=== PATIENT | female | born 1995 | race American Indian/Alaskan Native ===

== ENCOUNTER 2017-05-06 23:01 | Emergency (ER) | payer OTHER, MEDICAID ==
[2017-05-06 23:48] VITALS: BP 143/91
--- NOTE | 2017-05-07 00:35 | XRay Report ---
FINAL REPORT PROCEDURE: XR ANKLE 2V LT TECHNIQUE: LEFT ankle radiographs, AP and lateral views. HISTORY: injury, LT ANKLE PAIN COMPARISON: No prior studies are available for comparison. FINDINGS: Fracture (s) and/or Dislocation(s): None. Alignment: Normal. Joint space(s): Normal. Soft tissues: Normal. Bone mineralization: Normal. Foreign bodies: Normal. Calcaneal spurring: Normal. IMPRESSION: Normal Examination .
--- NOTE | 2017-05-07 00:37 | XRay Report ---
FINAL REPORT PROCEDURE: XR KNEE 3V RT TECHNIQUE: RIGHT knee radiographs, AP, lateral and oblique views. CPT 25041 HISTORY: injury, RT KNEE PAIN COMPARISON: No prior studies are available for comparison. FINDINGS: Fracture (s) and/or Dislocation(s): None . Alignment: Normal . Joint space(s): Normal . Soft tissues: Normal . Bone mineralization: Normal . Foreign bodies: None . IMPRESSION: Normal Examination.
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
[2017-05-07] MEDS ORDERED: NORCO 5/325 PO ONE (02:57)
[2017-05-07] MEDS ORDERED: VALIUM PO ONE (02:57)
[2017-05-07] MEDS ORDERED: TRIPLE ANTIBIOTIC TP ONE (02:58)
[2017-05-07] MEDS ORDERED: BOOSTRIX IM ONE (02:58)
[2017-05-07] MEDS ORDERED: NACL 0.9% IR ONE (03:04)
== END 2017-05-07 05:44 | disposition home or self-care (01) ==
LOC: ED 23:01
DX: S90.02XA Contusion of left ankle, initial encounter (principal); M25.50 Pain in unspecified joint; F41.9 Anxiety disorder, unspecified; S80.212A Abrasion, left knee, initial encounter; S80.211A Abrasion, right knee, initial encounter; V49.59XA Passenger injured in collision with other motor vehicles in traffic accident, initial encounter; Y93.9 Activity, unspecified; Y92.9 Unspecified place or not applicable; Y99.9 Unspecified external cause status
CPT/HCPCS: 90471; 90715; A6250

== ENCOUNTER 2018-05-04 09:20 | Emergency (ER) | payer MEDICAID ==
[2018-05-04 12:08] LABS: Bacteria,Urine 1+ /HPF (Negative); Bilirubin,Urine NEG (Negative); Blood,Urine SM (Negative); Color,Urine Yellow (Yellow); HCG Qualitative,Urine Negative (Negative); Mucus,Urine 2+ /HPF; Protein,Urine <15 mg/dL mg/dL (Negative)
--- NOTE | 2018-05-04 12:40 | Emergency Department Report ---
ED N/V/D HPI - General Chief complaint: Abdominal Pain Stated complaint: STOMACH PAIN Time Seen by Provider: 05/04/18 10:25 Source: patient Mode of arrival: Ambulatory Limitations: No Limitations - History of Present Illness MD complaint: nausea, diarrhea -: Gradual, days(s) (3) Description of Diarrhea: water Associated Abdominal Pain: Yes Location: diffuse Radiation: none Severity: mild Pain Scale: 3 Quality: cramping Consistency: intermittent Improves with: eating Worsens with: none Associated Symptoms: denies: myalgias, chest pain, cough, headaches, loss of appetite, malaise, nausea/vomiting, rash, dysuria, shortness of breath, syncope - Related Data Previous Rx's Medication Instructions Recorded Last Taken Type Ferrous Sulfate [Feosol 325 MG tab] 325 mg PO TID #90 tablet 09/09/14 10/09/14 16:00 Rx 1 tablet Butalb/Acetaminophen/Caffeine 1 each PO Q6HR PRN #20 capsule 01/16/15 Unknown Rx [Fioricet 50-300-40 mg Capsule] Ibuprofen [Motrin 800 MG tab] 800 mg PO Q8H PRN #30 tablet 01/16/15 Unknown Rx Ibuprofen [Motrin 800 MG tab] 800 mg PO Q8HR PRN #30 tablet 07/25/16 Unknown Rx Cyclobenzaprine [Flexeril] 10 mg PO TID PRN #15 tablet 05/07/17 Unknown Rx Ibuprofen [Motrin] 600 mg PO Q8H PRN #15 tablet 05/07/17 Unknown Rx Dicyclomine [Bentyl] 10 mg PO QID 3 Days capsule 05/04/18 Unknown Rx Diphenoxylate HCl/Atropine 1 each PO BID PRN #10 tablet 05/04/18 Unknown Rx [Lomotil 2.5-0.025 mg Tablet] Nitrofurantoin Monohyd/M-Cryst 100 mg PO BID #14 capsule 05/04/18 Unknown Rx [Macrobid 100 mg Capsule] Allergies Allergy/AdvReac Type Severity Reaction Status Date / Time No Known Allergies Allergy Verified 05/06/17 23:40 ED Review of Systems ROS: Stated complaint: STOMACH PAIN Other details as noted in HPI Comment: All other systems reviewed and negative ED Past Medical Hx - Past Medical History Previous Medical History?: Yes Hx Hypertension: No Hx Congestive Heart Failure: No Hx Diabetes: No Hx Deep Vein Thrombosis: No Hx Renal Disease: No Hx Sickle Cell Disease: No Hx Headaches / Migraines: Yes Hx Seizures: No Hx Psychiatric Treatment: Yes (anxiety) Hx Asthma: No Hx COPD: No Hx HIV: No - Surgical History Past Surgical History?: No Additional Surgical History: csection - Social History Smoking Status: Current Every Day Smoker Substance Use Type: None - Medications Home Medications: Home Medications Medication Instructions Recorded Confirmed Last Taken Type Ferrous Sulfate [Feosol 325 MG tab] 325 mg PO TID #90 tablet 09/09/14 11/22/14 10/09/14 16:00 Rx 1 tablet Butalb/Acetaminophen/Caffeine 1 each PO Q6HR PRN #20 capsule 01/16/15 Unknown Rx [Fioricet 50-300-40 mg Capsule] Ibuprofen [Motrin 800 MG tab] 800 mg PO Q8H PRN #30 tablet 01/16/15 Unknown Rx Ibuprofen [Motrin 800 MG tab] 800 mg PO Q8HR PRN #30 tablet 07/25/16 Unknown Rx Cyclobenzaprine [Flexeril] 10 mg PO TID PRN #15 tablet 05/07/17 Unknown Rx Ibuprofen [Motrin] 600 mg PO Q8H PRN #15 tablet 05/07/17 Unknown Rx Dicyclomine [Bentyl] 10 mg PO QID 3 Days capsule 05/04/18 Unknown Rx Diphenoxylate HCl/Atropine 1 each PO BID PRN #10 tablet 05/04/18 Unknown Rx [Lomotil 2.5-0.025 mg Tablet] Nitrofurantoin Monohyd/M-Cryst 100 mg PO BID #14 capsule 05/04/18 Unknown Rx [Macrobid 100 mg Capsule] ED Physical Exam - General Limitations: No Limitations General appearance: alert, in no apparent distress - Head Head exam: Present: atraumatic, normocephalic - Eye Eye exam: Present: normal appearance - ENT ENT exam: Present: mucous membranes moist - Neck Neck exam: Present: normal inspection - Respiratory Respiratory exam: Present: normal lung sounds bilaterally. Absent: respiratory distress, wheezes, rales, rhonchi - Cardiovascular Cardiovascular Exam: Present: regular rate, normal rhythm. Absent: systolic murmur, diastolic murmur, rubs, gallop - GI/Abdominal GI/Abdominal exam: Present: soft, normal bowel sounds. Absent: distended, tenderness, guarding, rebound - Extremities Exam Extremities exam: Present: normal inspection - Back Exam Back exam: Present: normal inspection - Neurological Exam Neurological exam: Present: alert, oriented X3 - Psychiatric Psychiatric exam: Present: normal affect, normal mood - Skin Skin exam: Present: warm, dry, intact, normal color. Absent: rash ED Course Vital Signs 05/04/18 09:36 Temperature 98.5 F Pulse Rate 78 Respiratory 16 Rate Blood Pressure 125/76 O2 Sat by Pulse 100 Oximetry ED Medical Decision Making - Lab Data Lab Results 05/04/18 Range/Units 11:20 Urine Color Yellow (Yellow) Urine Turbidity Clear (Clear) Urine pH 5.0 (5.0-7.0) Ur Specific [place] 1.027 (1.003-1.030) Urine Protein <15 mg/dl (Negative) mg/dL Urine Glucose (UA) Neg (Negative) mg/dL Urine Ketones Neg (Negative) mg/dL Urine Blood Sm (Negative) Urine Nitrite Neg (Negative) Urine Bilirubin Neg (Negative) Urine Urobilinogen 2.0 (<2.0) mg/dL Ur Leukocyte Esterase Mod (Negative) Urine WBC (Auto) 9.0 H (0.0-6.0) /HPF Urine RBC (Auto) 6.0 (0.0-6.0) /HPF U Epithel Cells (Auto) 22.0 H (0-13.0) /HPF Urine Bacteria (Auto) 1+ (Negative) /HPF Urine Mucus 2+ /HPF Urine HCG, Qual Negative (Negative) - Radiology Data interpreted by me: X-ray of the abdomen shows no acute process - Medical Decision Making Patient's diarrhea most likely is secondary to a viral source. Patient has a mild urinary tract infection started secondary to the diarrhea patient be started on antibiotics and medicines for symptomatic relief Critical care attestation.: If time is entered above; I have spent that time in minutes in the direct care of this critically ill patient, excluding procedure time. ED Disposition Clinical Impression: Viral enteritis Acute cystitis Qualifiers: Hematuria presence: without hematuria Qualified Code(s): N30.00 - Acute cystitis without hematuria Disposition: TO HOME OR SELFCARE Is pt being admited?: No Does the pt Need Aspirin: No Condition: Stable Instructions: Urinary Tract Infection in Women (ED), Acute Diarrhea (ED) Referrals: PRIMARY CARE, [Primary Care Provider] - 3-5 Days Time of Disposition: 12:40
--- NOTE | 2018-05-04 12:42 | XRay Report ---
ABDOMINAL SERIES: History: Diarrhea. Erect chest film shows no acute or significant changes involving the heart or lung niño. There is no evidence of free air beneath the diaphragms. The gas pattern within the abdomen is unremarkable. There is no evidence of bowel dilatation, significant air-fluid levels, or masses. Organ shadows are unremarkable. IMPRESSION: Abdominal series within normal limits.
[2018-05-04 12:59] VITALS: BP 121/71
== END 2018-05-04 12:56 | disposition home or self-care (01) ==
LOC: ED 09:20
DX: A08.4 Viral intestinal infection, unspecified (principal); N30.00 Acute cystitis without hematuria; F17.200 Nicotine dependence, unspecified, uncomplicated; F41.9 Anxiety disorder, unspecified; G43.909 Migraine, unspecified, not intractable, without status migrainosus
CPT/HCPCS: 74022; 81001; 81025; 99283

== ENCOUNTER 2019-05-01 15:12 | Emergency (ER) | payer MEDICAID ==
[2019-05-01 15:45] VITALS: BP 138/79
--- NOTE | 2019-05-01 15:45 | Event Note ---
ED Screening Note Date of service: 05/01/19 Time: 15:42 ED Screening Note: This is a 23 y.o. F. with left ankle pain for 4 days. PMH of anxiety LMP 04/13/2019 This initial assessment/diagnostic orders/clinical plan/treatment(s) is/are subject to change based on patients health status, clinical progression and re- assessment by fellow clinical providers in the ED. Further treatment and workup at subsequent clinical providers discretion. Patient/guardian urged not to elope from the ED as their condition may be serious if not clinically assessed and managed. Initial orders include: XR left ankle
--- NOTE | 2019-05-01 17:45 | XRay Report ---
LEFT ANKLE 3 VIEWS INDICATION / CLINICAL INFORMATION: pain, lateral. COMPARISON: None available. FINDINGS: No fracture, dislocation or soft tissue swelling is seen within the left ankle. The ankle [place] ears intact. Signer Name: Vega Sharpe MD Signed: 05/01/2019 5:41 PM Workstation Name: [id number]
[2019-05-01] MEDS ORDERED: IBUPROFEN PO ONE (17:57)
--- NOTE | 2019-05-01 17:59 | Emergency Department Report ---
ED Lower Extremity HPI - General Chief Complaint: Extremity Injury, Lower Stated Complaint: LT ANKLE INJURY Time Seen by Provider: 05/01/19 15:41 Source: patient Mode of arrival: Ambulatory Limitations: No Limitations - History of Present Illness Initial Comments: This is a 23-year-old female nontoxic, well nourished in appearance, no acute signs of distress presents to the ED with c/o of left ankle pain 1 week. Patient denies any trauma. Patient denies any numbness, tingling, fever, chills, nausea, vomiting, chest pain, shortness of breath, headache, stiff neck. Patient denies any joint swelling or joint redness. Patient denies decreased range of motion. Patient stated has decreased gait due to pain. Patient denies any allergies or significant past medical history. MD Complaint: ankle injury -: week(s) (1) Injury: Ankle: Left Severity: mild Severity scale (0 -10): 8 Improves With: immobilization Worsens With: movement, palpation Associated Symptoms: able to partially bear weight, ambulatory. denies: snap/pop sensation, swelling, numbness, tingling, unable to bear weight - Related Data Previous Rx's Medication Instructions Recorded Last Taken Type Ferrous Sulfate [Feosol 325 MG tab] 325 mg PO TID #90 tablet 09/09/14 10/09/14 16:00 Rx 1 tablet Butalb/Acetaminophen/Caffeine 1 each PO Q6HR PRN #20 capsule 01/16/15 Unknown Rx [Fioricet 50-300-40 mg Capsule] Ibuprofen [Motrin 800 MG tab] 800 mg PO Q8H PRN #30 tablet 01/16/15 Unknown Rx Ibuprofen [Motrin 800 MG tab] 800 mg PO Q8HR PRN #30 tablet 07/25/16 Unknown Rx Cyclobenzaprine [Flexeril] 10 mg PO TID PRN #15 tablet 05/07/17 Unknown Rx Ibuprofen [Motrin] 600 mg PO Q8H PRN #15 tablet 05/07/17 Unknown Rx Dicyclomine [Bentyl] 10 mg PO QID 3 Days capsule 05/04/18 Unknown Rx Diphenoxylate HCl/Atropine 1 each PO BID PRN #10 tablet 05/04/18 Unknown Rx [Lomotil 2.5-0.025 mg Tablet] Nitrofurantoin Monohyd/M-Cryst 100 mg PO BID #14 capsule 05/04/18 Unknown Rx [Macrobid 100 mg Capsule] Benzonatate [Tessalon Perle] 100 mg PO TID PRN #30 capsule 09/27/18 Unknown Rx Cetirizine HCl [Zyrtec 10mg tab] 10 mg PO DAILY #30 tablet 09/27/18 Unknown Rx Fluticasone [Flonase] 1 spray NS QDAY #1 bottle 09/27/18 Unknown Rx Oseltamivir Phosphate [Tamiflu] 75 mg PO BID 5 Days #10 capsule 09/27/18 Unknown Rx Ibuprofen [Motrin] 600 mg PO Q8H PRN #20 tablet 05/01/19 Unknown Rx Allergies Allergy/AdvReac Type Severity Reaction Status Date / Time No Known Allergies Allergy Verified 05/06/17 23:40 ED Review of Systems ROS: Stated complaint: LT ANKLE INJURY Other details as noted in HPI Constitutional: denies: chills, fever Eyes: denies: eye pain, eye discharge, vision change ENT: denies: ear pain, throat pain Respiratory: denies: cough, shortness of breath, wheezing Cardiovascular: denies: chest pain, palpitations Endocrine: no symptoms reported Gastrointestinal: denies: abdominal pain, nausea, diarrhea Genitourinary: denies: urgency, dysuria, discharge Musculoskeletal: arthralgia. denies: back pain, joint swelling Skin: denies: rash, lesions Neurological: denies: headache, weakness, paresthesias Psychiatric: denies: anxiety, depression Hematological/Lymphatic: denies: easy bleeding, easy bruising ED Past Medical Hx - Past Medical History Previous Medical History?: Yes Hx Hypertension: No Hx Congestive Heart Failure: No Hx Diabetes: No Hx Deep Vein Thrombosis: No Hx Renal Disease: No Hx Sickle Cell Disease: No Hx Headaches / Migraines: Yes Hx Seizures: No Hx Psychiatric Treatment: Yes (anxiety) Hx Asthma: No Hx COPD: No Hx HIV: No - Surgical History Hx Appendectomy: Yes Additional Surgical History: csection - Social History Smoking Status: Never Smoker Substance Use Type: None - Medications Home Medications: Home Medications Medication Instructions Recorded Confirmed Last Taken Type Ferrous Sulfate [Feosol 325 MG tab] 325 mg PO TID #90 tablet 09/09/14 11/22/14 10/09/14 16:00 Rx 1 tablet Butalb/Acetaminophen/Caffeine 1 each PO Q6HR PRN #20 capsule 04/17/15 Unknown Rx [Fioricet 50-300-40 mg Capsule] Ibuprofen [Motrin 800 MG tab] 800 mg PO Q8H PRN #30 tablet 01/16/15 Unknown Rx Ibuprofen [Motrin 800 MG tab] 800 mg PO Q8HR PRN #30 tablet 07/25/16 Unknown Rx Cyclobenzaprine [Flexeril] 10 mg PO TID PRN #15 tablet 05/07/17 Unknown Rx Ibuprofen [Motrin] 600 mg PO Q8H PRN #15 tablet 05/07/17 Unknown Rx Dicyclomine [Bentyl] 10 mg PO QID 3 Days capsule 05/04/18 Unknown Rx Diphenoxylate HCl/Atropine 1 each PO BID PRN #10 tablet 05/04/18 Unknown Rx [Lomotil 2.5-0.025 mg Tablet] Nitrofurantoin Monohyd/M-Cryst 100 mg PO BID #14 capsule 05/04/18 Unknown Rx [Macrobid 100 mg Capsule] Benzonatate [Tessalon Perle] 100 mg PO TID PRN #30 capsule 09/27/18 Unknown Rx Cetirizine HCl [Zyrtec 10mg tab] 10 mg PO DAILY #30 tablet 09/27/18 Unknown Rx Fluticasone [Flonase] 1 spray NS QDAY #1 bottle 09/27/18 Unknown Rx Oseltamivir Phosphate [Tamiflu] 75 mg PO BID 5 Days #10 capsule 09/27/18 Unknown Rx Ibuprofen [Motrin] 600 mg PO Q8H PRN #20 tablet 05/01/19 Unknown Rx ED Physical Exam - General Limitations: No Limitations General appearance: alert, in no apparent distress - Head Head exam: Present: atraumatic, normocephalic - Extremities Exam Extremities exam: Present: normal inspection, full ROM, tenderness, normal capillary refill. Absent: joint swelling, calf tenderness - Expanded Lower Extremity Exam Left Hip exam: Present: normal inspection, full ROM. Absent: tenderness, swelling Upper Leg exam: Present: normal inspection, full ROM. Absent: tenderness, swelling Knee exam: Present: normal inspection, full ROM. Absent: tenderness, swelling Lower Leg exam: Present: normal inspection, full ROM. Absent: tenderness, swelling Ankle exam: Present: normal inspection, full ROM, tenderness. Absent: swelling, abrasion, laceration, ecchymosis, deformity, crepidus, dislocation, erythema, anterior draw sign Foot/Toe exam: Present: normal inspection, full ROM. Absent: tenderness, swelling Neuro vascular tendon exam: Present: no vascular compromise Gait: Positive: observed and limited by pain - Back Exam Back exam: Present: normal inspection, full ROM - Neurological Exam Neurological exam: Present: alert, oriented X3, normal gait - Psychiatric Psychiatric exam: Present: normal affect, normal mood - Skin Skin exam: Present: warm, dry, intact, normal color. Absent: rash ED Course Vital Signs 05/01/19 15:43 Temperature 98.9 F Pulse Rate 72 Respiratory 18 Rate Blood Pressure 138/79 O2 Sat by Pulse 99 Oximetry - Reevaluation(s) Reevaluation #1: 05/01/19 17:56 Patient is speaking in full sentences with no signs of distress noted. ED Lower Extremity MDM - Medical Decision Making This is a 23-year-old female that presents with left ankle sprain. Patient is stable and was examined by me. I referred patient to an orthopedic doctor for further evaluation for possible MRI. X-ray has been obtained and dictated by the radiologist. Patient is notified of the x-ray report with noted by the patient. Patient does have normal gait with no tenderness and no joint swelling. No ecchymosis. no joint redness or swelling. Not warm to touch. No signs of cellulites present. Patient received juhi wrap. Patient was instructed to RICE therapy. Patient received Motrin for pain. Patient is discharged with Motrin. At time of discharge, the patient does not seem toxic or ill in appearance. No acute signs of distress noted. Patient agrees to discharge treatment plan of care. No further questions noted by the patient. Critical care attestation.: If time is entered above; I have spent that time in minutes in the direct care of this critically ill patient, excluding procedure time. ED Disposition Clinical Impression: Left ankle sprain Disposition: DC-01 TO HOME OR SELFCARE Is pt being admited?: No Does the pt Need Aspirin: No Condition: Stable Instructions: Ankle Sprain (ED), RICE Therapy (ED) Additional Instructions: Follow-up with a orthopedic doctor in 3-5 days or if symptoms worsen and continue return to emergency room as soon as possible. Prescriptions: Ibuprofen [Motrin] 600 mg PO Q8H PRN #20 tablet PRN Reason: Pain Referrals: IMTIAZ YEH MD [Primary Care Provider] - 3-5 Days TRACEY HONG MD [Staff Physician] - 3-5 Days [facility]IMARY CAR[facility] [Referring] - 3-5 Days [facility] [Outside] - 3-5 Days [facility] [Outside] - 3-5 Days Forms: Work/School Release Form(ED)
== END 2019-05-01 19:31 | disposition home or self-care (01) ==
LOC: ED 15:12
DX: S93.402A Sprain of unspecified ligament of left ankle, initial encounter (principal); G43.909 Migraine, unspecified, not intractable, without status migrainosus; F41.9 Anxiety disorder, unspecified; Z90.49 Acquired absence of other specified parts of digestive tract; Z79.899 Other long term (current) drug therapy; X58.XXXA Exposure to other specified factors, initial encounter; Y93.89 Activity, other specified; Y92.89 Other specified places as the place of occurrence of the external cause; Y99.8 Other external cause status
CPT/HCPCS: 99283

== ENCOUNTER 2020-10-25 13:58 | Emergency (ER) | payer MEDICAID ==
[2020-10-25] MEDS ORDERED: METOCLOPRAMIDE 10 MG/2 ML INJ IV ONE (15:10)
[2020-10-25] MEDS ORDERED: SODIUM CHLORIDE 0.9% 1000 ML 1,000 ML IV ONE (15:10)
--- NOTE | 2020-10-25 15:21 | Emergency Department Report ---
ED N/V/D HPI - General Chief complaint: Nausea/Vomiting/Diarrhea Stated complaint: 7 WKS VOMITTING Source: patient Mode of arrival: Ambulatory Limitations: No Limitations - History of Present Illness Initial comments: 25-year-old -[place] female presents to the emergency room complaining of nausea and vomiting and some suprapubic pain. Patient states that she has been vomiting for approximately 2 weeks. She reports she is 7 weeks has not followed up by [facility] yet. Patient states that she was seen at [facility] on 10/20/2020 was given a liter of fluids and Zofran and discharged. Patient reports she is 2 para 1 with a last menstrual period of 12-20. She denies any vaginal bleeding no vaginal discharge no past medical history and currently is taking Zofran that was given to her by [facility]. Patient denies any dysuria no urinary frequency or urgency. MD complaint: nausea, vomiting, abdominal pain Onset/Timin -: week(s) Description of Vomiting: food contents Associated Abdominal Pain: Yes (Suprapubic) Severity: moderate Quality: aching Improves with: none Worsens with: none Associated Symptoms: nausea/vomiting, weakness. denies: chest pain, cough, diaphoresis, fever/chills - Related Data Previous Rx's Medication Instructions Recorded Last Taken Type Ferrous Sulfate [Feosol 325 MG tab] 325 mg PO TID #90 tablet 09/09/14 10/09/14 16:00 Rx 1 tablet Butalb/Acetaminophen/Caffeine 1 each PO Q6HR PRN #20 capsule 01/16/15 Unknown Rx [Fioricet 50-300-40 mg Capsule] Ibuprofen [Motrin 800 MG tab] 800 mg PO Q8H PRN #30 tablet 01/16/15 Unknown Rx Ibuprofen [Motrin 800 MG tab] 800 mg PO Q8HR PRN #30 tablet 07/25/16 Unknown Rx Cyclobenzaprine [Flexeril] 10 mg PO TID PRN #15 tablet 05/07/17 Unknown Rx Ibuprofen [Motrin] 600 mg PO Q8H PRN #15 tablet 05/07/17 Unknown Rx Dicyclomine [Bentyl] 10 mg PO QID 3 Days capsule 05/04/18 Unknown Rx Diphenoxylate HCl/Atropine 1 each PO BID PRN #10 tablet 05/04/18 Unknown Rx [Lomotil 2.5-0.025 mg Tablet] Nitrofurantoin Monohyd/M-Cryst 100 mg PO BID #14 capsule 05/04/18 Unknown Rx [Macrobid 100 mg Capsule] Benzonatate [Tessalon Perle] 100 mg PO TID PRN #30 capsule 09/27/18 Unknown Rx Cetirizine HCl [Zyrtec 10mg tab] 10 mg PO DAILY #30 tablet 09/27/18 Unknown Rx Fluticasone [Flonase] 1 spray NS QDAY #1 bottle 09/27/18 Unknown Rx Oseltamivir Phosphate [Tamiflu] 75 mg PO BID 5 Days #10 capsule 09/27/18 Unknown Rx Ibuprofen [Motrin] 600 mg PO Q8H PRN #20 tablet 05/01/19 Unknown Rx Helena Root [Helena] 250 mg PO QID PRN #40 capsule 10/25/20 Unknown Rx Metoclopramide [Reglan] 10 mg PO TID PRN #30 tab 10/25/20 Unknown Rx Nitrofurantoin Rhea/M-Cryst 100 mg PO Q12HR 10 Days #20 capsule 10/25/20 Unknown Rx [Macrobid CAP] Allergies Allergy/AdvReac Type Severity Reaction Status Date / Time No Known Allergies Allergy Verified 05/06/17 23:40 ED Review of Systems ROS: Stated complaint: 7 WKS VOMITTING Other details as noted in HPI ED Past Medical Hx - Past Medical History Hx Hypertension: No Hx Congestive Heart Failure: No Hx Diabetes: No Hx Deep Vein Thrombosis: No Hx Renal Disease: No Hx Sickle Cell Disease: No Hx Headaches / Migraines: No Hx Seizures: No Hx Psychiatric Treatment: Yes (anxiety) Hx Asthma: No Hx COPD: No Hx HIV: No - Surgical History Hx Appendectomy: No Additional Surgical History: csection - Social History Smoking Status: Never Smoker Substance Use Type: None - Medications Home Medications: Home Medications Medication Instructions Recorded Confirmed Last Taken Type Ferrous Sulfate [Feosol 325 MG tab] 325 mg PO TID #90 tablet 09/09/14 11/22/14 10/09/14 16:00 Rx 1 tablet Butalb/Acetaminophen/Caffeine 1 each PO Q6HR PRN #20 capsule 01/16/15 Unknown Rx [Fioricet 50-300-40 mg Capsule] Ibuprofen [Motrin 800 MG tab] 800 mg PO Q8H PRN #30 tablet 01/16/15 Unknown Rx Ibuprofen [Motrin 800 MG tab] 800 mg PO Q8HR PRN #30 tablet 07/25/16 Unknown Rx Cyclobenzaprine [Flexeril] 10 mg PO TID PRN #15 tablet 05/07/17 Unknown Rx Ibuprofen [Motrin] 600 mg PO Q8H PRN #15 tablet 05/07/17 Unknown Rx Dicyclomine [Bentyl] 10 mg PO QID 3 Days capsule 05/04/18 Unknown Rx Diphenoxylate HCl/Atropine 1 each PO BID PRN #10 tablet 05/04/18 Unknown Rx [Lomotil 2.5-0.025 mg Tablet] Nitrofurantoin Monohyd/M-Cryst 100 mg PO BID #14 capsule 05/04/18 Unknown Rx [Macrobid 100 mg Capsule] Benzonatate [Tessalon Perle] 100 mg PO TID PRN #30 capsule 09/27/18 Unknown Rx Cetirizine HCl [Zyrtec 10mg tab] 10 mg PO DAILY #30 tablet 09/27/18 Unknown Rx Fluticasone [Flonase] 1 spray NS QDAY #1 bottle 09/27/18 Unknown Rx Oseltamivir Phosphate [Tamiflu] 75 mg PO BID 5 Days #10 capsule 09/27/18 Unknown Rx Ibuprofen [Motrin] 600 mg PO Q8H PRN #20 tablet 05/01/19 Unknown Rx Helena Root [Helena] 250 mg PO QID PRN #40 capsule 10/25/20 Unknown Rx Metoclopramide [Reglan] 10 mg PO TID PRN #30 tab 10/25/20 Unknown Rx Nitrofurantoin Rhea/M-Cryst 100 mg PO Q12HR 10 Days #20 capsule 10/25/20 Unknown Rx [Macrobid CAP] ED Physical Exam - General Limitations: No Limitations General appearance: alert, in no apparent distress - Head Head exam: Present: atraumatic, normocephalic - Eye Eye exam: Present: normal appearance - ENT ENT exam: Present: mucous membranes moist - Neck Neck exam: Present: normal inspection - Respiratory Respiratory exam: Present: normal lung sounds bilaterally. Absent: respiratory distress - Cardiovascular Cardiovascular Exam: Present: regular rate, normal rhythm. Absent: systolic murmur, diastolic murmur, rubs, gallop - GI/Abdominal GI/Abdominal exam: Present: soft, tenderness (Suprapubic), normal bowel sounds - Extremities Exam Extremities exam: Present: normal inspection - Back Exam Back exam: Present: normal inspection - Neurological Exam Neurological exam: Present: alert, oriented X3 - Psychiatric Psychiatric exam: Present: normal affect, normal mood - Skin Skin exam: Present: warm, dry, intact, normal color. Absent: rash ED Course Vital Signs 10/25/20 10/25/20 14:02 20:14 Temperature 98.1 F 97.9 F Pulse Rate 88 78 Respiratory 20 18 Rate Blood Pressure 136/78 Blood Pressure 128/80 [Right] O2 Sat by Pulse 100 100 Oximetry ED Medical Decision Making - Lab Data Result diagrams: 10/25/20 15:13 10/25/20 15:13 Laboratory Tests 10/25/20 10/25/20 10/25/20 15:13 15:13 15:13 WBC 6.2 RBC 4.64 Hgb 14.4 H Hct 41.8 MCV 90 MCH 31 MCHC 35 H RDW 13.2 Plt Count 409 Lymph % (Auto) 17.9 Rhea % (Auto) 7.3 Eos % (Auto) 1.0 Baso % (Auto) 1.6 Lymph # (Auto) 1.1 L Rhea # (Auto) 0.4 Eos # (Auto) 0.1 Baso # (Auto) 0.1 Seg Neutrophils % 72.2 H Seg Neutrophils # 4.5 Sodium 138 Potassium 3.4 L Chloride 99.5 Carbon Dioxide 27 Anion Gap 15 BUN 9 Creatinine 0.6 Estimated GFR > 60 BUN/Creatinine Ratio 15 Glucose 92 Calcium 9.3 Total Bilirubin 1.20 AST 9 ALT < 5 L Alkaline Phosphatase 64 Total Protein 7.7 Albumin 4.3 Albumin/Globulin Ratio 1.3 HCG, Quant 29253 H Urine Color Urine Turbidity Urine pH Ur Specific [place] Urine Protein Urine Glucose (UA) Urine Ketones Urine Blood Urine Nitrite Urine Bilirubin Urine Urobilinogen Ur Leukocyte Esterase Urine WBC (Auto) Urine RBC (Auto) U Epithel Cells (Auto) Urine Bacteria (Auto) Urine Mucus 10/25/20 15:59 WBC RBC Hgb Hct MCV MCH MCHC RDW Plt Count Lymph % (Auto) Rhea % (Auto) Eos % (Auto) Baso % (Auto) Lymph # (Auto) Rhea # (Auto) Eos # (Auto) Baso # (Auto) Seg Neutrophils % Seg Neutrophils # Sodium Potassium Chloride Carbon Dioxide Anion Gap BUN Creatinine Estimated GFR BUN/Creatinine Ratio Glucose Calcium Total Bilirubin AST ALT Alkaline Phosphatase Total Protein Albumin Albumin/Globulin Ratio HCG, Quant Urine Color Mary Urine Turbidity Cloudy Urine pH 5.0 Ur Specific [place] 1.027 Urine Protein 100 mg/dl Urine Glucose (UA) Neg Urine Ketones 80 Urine Blood Mod Urine Nitrite Neg Urine Bilirubin Neg Urine Urobilinogen 4.0 Ur Leukocyte Esterase Mod Urine WBC (Auto) 47.0 H Urine RBC (Auto) 47.0 U Epithel Cells (Auto) 26.0 H Urine Bacteria (Auto) 1+ Urine Mucus 3+ - Medical Decision Making 25-year-old -[place] female presents to the emergency room complaining of nausea and vomiting and some suprapubic pain. Patient states that she has been vomiting for approximately 2 weeks. She reports she is 7 weeks has not followed up by [facility] yet. Patient states that she was seen at [facility] on 10/20/2020 was given a liter of fluids and Zofran and discharged. Patient reports she is 2 para 1 with a last menstrual period of 12-20. She denies any vaginal bleeding no vaginal discharge no past medical history and currently is taking Zofran that was given to her by [facility]. Patient denies any dysuria no urinary frequency or urgency. Critical care attestation.: If time is entered above; I have spent that time in minutes in the direct care of this critically ill patient, excluding procedure time. ED Disposition Clinical Impression: Nausea and vomiting in prior to 22 weeks gestation, Hyperemesis arising during , Dehydration, Hypokalemia UTI (urinary tract infection) Qualifiers: Urinary tract infection type: site unspecified Hematuria presence: without hematuria Qualified Code(s): N39.0 - Urinary tract infection, site not specified Disposition: DC-01 TO HOME OR SELFCARE Is pt being admited?: No Does the pt Need Aspirin: No Condition: Stable Instructions: Hyperemesis Gravidarum, Hypokalemia, Dehydration, Adult, [id number], and Urinary Tract Infection Additional Instructions: Complete antibiotics as prescribed. Take antinausea medication as prescribed. Is very important for you to follow-up with a [facility]. Prescriptions: Helena Root [Helena] 250 mg PO QID PRN #40 capsule PRN Reason: Nausea And Vomiting Nitrofurantoin Rhea/M-Cryst [Macrobid CAP] 100 mg PO Q12HR 10 Days #20 capsule Metoclopramide [Reglan] 10 mg PO TID PRN #30 tab PRN Reason: Nausea And Vomiting Referrals: PRIMARY CARE, [Primary Care Provider] - 3-5 Days [facility] [Provider Group] - 3-5 Days [facility] [Provider Group] - 3-5 Days [facility] [Provider Group] - 3-5 Days Forms: Work/School Release Form(ED)
[2020-10-25 15:42] LABS: Basophils # (Auto) 0.1 K/mm3 (0.0-0.1); Basophils % (Auto) 1.6 % (0.0-1.8); Eosinophils # (Auto) 0.1 K/mm3 (0.0-0.4); Hematocrit 41.8 % (30.3-42.9); Hemoglobin 14.4 gm/dl (10.1-14.3); Lymphocytes # (Auto) 1.1 K/mm3 (1.2-5.4); Lymphocytes % (Auto) 17.9 % (13.4-35.0); Mean Corpuscular HGB Conc 35 % (30-34); Mean Corpuscular Volume 90 fl (79-97); Monocytes # (Auto) 0.4 K/mm3 (0.0-0.8); Monocytes % (Auto) 7.3 % (0.0-7.3); Platelet Count 409 K/mm3 (140-440); Red Blood Count 4.64 M/mm3 (3.65-5.03); Red Cell Distribution Width 13.2 % (13.2-15.2)
[2020-10-25 15:53] LABS: Alanine Aminotransferase < 5 units/L (7-56); Albumin 4.3 g/dL (3.9-5); BUN/Creatinine Ratio 15; Blood Urea Nitrogen 9 mg/dL (7-17); Calcium 9.3 mg/dL (8.4-10.2); Hemolysis Index 1
[2020-10-25 16:28] LABS: Bacteria,Urine 1+ /HPF (Negative); Bilirubin,Urine NEG (Negative); Blood,Urine MOD (Negative); Color,Urine Amber (Yellow); Mucus,Urine 3+ /HPF
[2020-10-25] MEDS ORDERED: ONDANSETRON 4 MG/2 ML INJ IV ONE (19:38)
[2020-10-25 20:15] VITALS: BP 128/80
== END 2020-10-25 20:16 | disposition home or self-care (01) ==
LOC: ED 13:58
DX: O23.41 Unspecified infection of urinary tract in pregnancy, first trimester (principal); O21.8 Other vomiting complicating pregnancy; O26.891 Other specified pregnancy related conditions, first trimester; E86.0 Dehydration; E87.6 Hypokalemia; F41.9 Anxiety disorder, unspecified; Z3A.01 Less than 8 weeks gestation of pregnancy; Z98.890 Other specified postprocedural states; Z79.1 Long term (current) use of non-steroidal anti-inflammatories (NSAID); Z79.899 Other long term (current) drug therapy
CPT/HCPCS: 36415; 80053; 81001; 84702; 85025; 87086; 96361; 96374; 96375; 99283; J2405; J7030

== ENCOUNTER 2020-11-01 21:01 | Emergency (ER) | payer MEDICAID ==
[2020-11-01] MEDS ORDERED: METOCLOPRAMIDE 10 MG/2 ML INJ IV ONE (21:15)
[2020-11-01] MEDS ORDERED: PYRIDOXINE 50 MG TAB PO STA (21:15)
[2020-11-01] MEDS ORDERED: FAMOTIDINE 20 MG/2 ML INJ IV ONE (21:35)
[2020-11-01 21:37] LABS: Hematocrit 41.6 % (30.3-42.9); Hemoglobin 14.6 gm/dl (10.1-14.3); Mean Corpuscular HGB Conc 35 % (30-34); Mean Corpuscular Volume 90 fl (79-97); Platelet Count 404 K/mm3 (140-440); Red Blood Count 4.65 M/mm3 (3.65-5.03); Red Cell Distribution Width 13.1 % (13.2-15.2)
[2020-11-01 21:51] LABS: INR 1.06 (0.87-1.13)
--- NOTE | 2020-11-01 21:51 | Emergency Department Report ---
ED N/V/D HPI - General Stated complaint: 8WEEKS PREG,VOMITING BLOOD/EXTREMLY WEAK PUI?: No Source: patient Mode of arrival: Ambulatory Limitations: No Limitations - History of Present Illness Initial comments: Patient is a A0 25-year-old -[place] female with no past medical history and who is approximately 8 weeks gestation presents to the ED with complaint of acute onset persistent intractable nausea and vomiting for the last 5 days. Patient states that she was initially evaluated in this ED about 3 days ago for the same, and was diagnosed with hyperemesis gravidarum and given a prescription of antiemetics. Patient states that she has not been able to keep anything down including the medications for nausea and vomiting that was prescribed for her. Patient states that she is unable to eat or drink anything because of intractable nausea and vomiting. Patient states that prior to arrival in the ED she retched heavily and visualize some traces of blood with emesis. Patient denies abdominal pain, chest pain, shortness of breath, abdominal pain, fever, chills, dizziness, syncope, vaginal bleeding, dysuria, urinary frequency and urgency, vaginal discharge, cough, headache, dyspareunia or low back pain. MD complaint: nausea, vomiting -: Sudden, days(s) (5) Description of Vomiting: food contents, watery Associated Abdominal Pain: No Location: diffuse Radiation: none Severity: severe Pain Scale: 7 Quality: aching, dull Consistency: intermittent Improves with: none Worsens with: eating, vomiting Context: other (8 weeks gestation) - Related Data Previous Rx's Medication Instructions Recorded Last Taken Type Ferrous Sulfate [Feosol 325 MG tab] 325 mg PO TID #90 tablet 09/09/14 10/09/14 16:00 Rx 1 tablet Butalb/Acetaminophen/Caffeine 1 each PO Q6HR PRN #20 capsule 01/16/15 Unknown Rx [Fioricet 50-300-40 mg Capsule] Ibuprofen [Motrin 800 MG tab] 800 mg PO Q8H PRN #30 tablet 01/16/15 Unknown Rx Ibuprofen [Motrin 800 MG tab] 800 mg PO Q8HR PRN #30 tablet 07/25/16 Unknown Rx Cyclobenzaprine [Flexeril] 10 mg PO TID PRN #15 tablet 05/07/17 Unknown Rx Ibuprofen [Motrin] 600 mg PO Q8H PRN #15 tablet 05/07/17 Unknown Rx Dicyclomine [Bentyl] 10 mg PO QID 3 Days capsule 05/04/18 Unknown Rx Diphenoxylate HCl/Atropine 1 each PO BID PRN #10 tablet 05/04/18 Unknown Rx [Lomotil 2.5-0.025 mg Tablet] Nitrofurantoin Monohyd/M-Cryst 100 mg PO BID #14 capsule 05/04/18 Unknown Rx [Macrobid 100 mg Capsule] Benzonatate [Tessalon Perle] 100 mg PO TID PRN #30 capsule 09/27/18 Unknown Rx Cetirizine HCl [Zyrtec 10mg tab] 10 mg PO DAILY #30 tablet 09/27/18 Unknown Rx Fluticasone [Flonase] 1 spray NS QDAY #1 bottle 09/27/18 Unknown Rx Oseltamivir Phosphate [Tamiflu] 75 mg PO BID 5 Days #10 capsule 09/27/18 Unknown Rx Ibuprofen [Motrin] 600 mg PO Q8H PRN #20 tablet 05/01/19 Unknown Rx Helena Root [Helena] 250 mg PO QID PRN #40 capsule 10/25/20 Unknown Rx Metoclopramide [Reglan] 10 mg PO TID PRN #30 tab 10/25/20 Unknown Rx Nitrofurantoin [place]/M-Cryst 100 mg PO Q12HR 10 Days #20 capsule 10/25/20 Unknown Rx [Macrobid CAP] Famotidine [Pepcid] 20 mg PO Q12H #60 tablet 11/02/20 Unknown Rx Promethazine [Phenergan SUPPOS] 25 mg AL Q6HR PRN #20 supp.rect 11/02/20 Unknown Rx Promethazine [Phenergan] 25 mg PO Q6HR PRN #3 tab 11/02/20 Unknown Rx cephALEXin [Keflex] 500 mg PO Q8HR #30 cap 11/02/20 Unknown Rx Allergies Allergy/AdvReac Type Severity Reaction Status Date / Time No Known Allergies Allergy Verified 11/01/20 21:18 ED Review of Systems ROS: Stated complaint: 8WEEKS PREG,VOMITING BLOOD/EXTREMLY WEAK Other details as noted in HPI Constitutional: denies: chills, fever Eyes: denies: eye pain, eye discharge, vision change ENT: denies: ear pain, throat pain Respiratory: denies: cough, shortness of breath, wheezing Cardiovascular: denies: chest pain, palpitations Endocrine: no symptoms reported Gastrointestinal: nausea, vomiting. denies: abdominal pain, diarrhea Genitourinary: denies: urgency, dysuria, discharge Musculoskeletal: denies: back pain, joint swelling, arthralgia Skin: denies: rash, lesions Neurological: denies: headache, weakness, paresthesias Psychiatric: denies: anxiety, depression Hematological/Lymphatic: denies: easy bleeding, easy bruising ED Past Medical Hx - Past Medical History Hx Hypertension: No Hx Congestive Heart Failure: No Hx Diabetes: No Hx Deep Vein Thrombosis: No Hx Renal Disease: No Hx Sickle Cell Disease: No Hx Headaches / Migraines: No Hx Seizures: No Hx Psychiatric Treatment: Yes (anxiety) Hx Asthma: No Hx COPD: No Hx HIV: No - Surgical History Hx Appendectomy: No Additional Surgical History: csection - Social History Smoking Status: Never Smoker Substance Use Type: None - Medications Home Medications: Home Medications Medication Instructions Recorded Confirmed Last Taken Type Ferrous Sulfate [Feosol 325 MG tab] 325 mg PO TID #90 tablet 09/09/14 11/22/14 10/09/14 16:00 Rx 1 tablet Butalb/Acetaminophen/Caffeine 1 each PO Q6HR PRN #20 capsule 01/16/15 Unknown Rx [Fioricet 50-300-40 mg Capsule] Ibuprofen [Motrin 800 MG tab] 800 mg PO Q8H PRN #30 tablet 01/16/15 Unknown Rx Ibuprofen [Motrin 800 MG tab] 800 mg PO Q8HR PRN #30 tablet 07/25/16 Unknown Rx Cyclobenzaprine [Flexeril] 10 mg PO TID PRN #15 tablet 05/07/17 Unknown Rx Ibuprofen [Motrin] 600 mg PO Q8H PRN #15 tablet 05/07/17 Unknown Rx Dicyclomine [Bentyl] 10 mg PO QID 3 Days capsule 05/04/18 Unknown Rx Diphenoxylate HCl/Atropine 1 each PO BID PRN #10 tablet 05/04/18 Unknown Rx [Lomotil 2.5-0.025 mg Tablet] Nitrofurantoin Monohyd/M-Cryst 100 mg PO BID #14 capsule 05/04/18 Unknown Rx [Macrobid 100 mg Capsule] Benzonatate [Tessalon Perle] 100 mg PO TID PRN #30 capsule 09/27/18 Unknown Rx Cetirizine HCl [Zyrtec 10mg tab] 10 mg PO DAILY #30 tablet 09/27/18 Unknown Rx Fluticasone [Flonase] 1 spray NS QDAY #1 bottle 09/27/18 Unknown Rx Oseltamivir Phosphate [Tamiflu] 75 mg PO BID 5 Days #10 capsule 09/27/18 Unknown Rx Ibuprofen [Motrin] 600 mg PO Q8H PRN #20 tablet 05/01/19 Unknown Rx Helena Root [Helena] 250 mg PO QID PRN #40 capsule 10/25/20 Unknown Rx Metoclopramide [Reglan] 10 mg PO TID PRN #30 tab 10/25/20 Unknown Rx Nitrofurantoin [place]/M-Cryst 100 mg PO Q12HR 10 Days #20 capsule 10/25/20 Unknown Rx [Macrobid CAP] Famotidine [Pepcid] 20 mg PO Q12H #60 tablet 11/02/20 Unknown Rx Promethazine [Phenergan SUPPOS] 25 mg AL Q6HR PRN #20 supp.rect 11/02/20 Unknown Rx Promethazine [Phenergan] 25 mg PO Q6HR PRN #3 tab 11/02/20 Unknown Rx cephALEXin [Keflex] 500 mg PO Q8HR #30 cap 11/02/20 Unknown Rx ED Physical Exam - General General appearance: alert, in no apparent distress - Head Head exam: Present: atraumatic, normocephalic, normal inspection - Eye Eye exam: Present: normal appearance, PERRL, EOMI Pupils: Present: normal accommodation - ENT ENT exam: Present: normal exam, normal orophraynx, mucous membranes moist, TM's normal bilaterally, normal external ear exam - Neck Neck exam: Present: normal inspection, full ROM - Respiratory Respiratory exam: Present: normal lung sounds bilaterally. Absent: respiratory distress, wheezes, rales, rhonchi, stridor, chest wall tenderness, accessory muscle use, prolonged expiratory - Cardiovascular Cardiovascular Exam: Present: regular rate, normal rhythm, normal heart sounds. Absent: systolic murmur, diastolic murmur, rubs, gallop - GI/Abdominal GI/Abdominal exam: Present: soft, normal bowel sounds. Absent: tenderness, guarding, rebound, hyperactive bowel sounds, hypoactive bowel sounds, organomegaly - Extremities Exam Extremities exam: Present: normal inspection, full ROM, normal capillary refill - Back Exam Back exam: Present: normal inspection, full ROM. Absent: tenderness, CVA tenderness (R), CVA tenderness (L), muscle spasm, paraspinal tenderness, vertebral tenderness - Neurological Exam Neurological exam: Present: alert, oriented X3, CN II-XII intact, normal gait, reflexes normal - Psychiatric Psychiatric exam: Present: normal affect, normal mood - Skin Skin exam: Present: warm, dry, intact, normal color. Absent: rash ED Course Vital Signs 11/01/20 23:16 Temperature 99.5 F Pulse Rate 99 H Respiratory 18 Rate Blood Pressure 134/89 O2 Sat by Pulse 98 Oximetry ED Medical Decision Making - Lab Data Result diagrams: 11/01/20 21:24 11/01/20 21:24 - Medical Decision Making This is a A0 25-year-old -[place] female with no past medical history and who is approximately 8 weeks gestation presents to the ED with complaint of acute onset persistent intractable nausea and vomiting for the last 5 days. Patient states that she was initially evaluated in this ED about 3 days ago for the same, and was diagnosed with hyperemesis gravidarum and given a prescription of antiemetics. Patient states that she has not been able to keep anything down including the medications for nausea and vomiting that was prescribed for her. Patient states that she is unable to eat or drink anything because of intractable nausea and vomiting. Patient states that prior to arrival in the ED she retched heavily and visualize some traces of blood with emesis from retching. In the ED, patient is alert and oriented x3 and is not in distress. Lab test results were reviewed and are all nonactionable with hCG quant of [id number] and urinary tract infection in urinalysis. Patient was treated in the ED with normal saline IV fluids, antiemetics, and antacids. Patient was thereafter observed in the ED and given oral fluid challenge. On reevaluation, patient passed oral fluid challenge in the ED, patient stated that he was feeling better and her vital signs are stable. Patient was therefore discharged home on antiemetics and antacid medications. Critical care attestation.: If time is entered above; I have spent that time in minutes in the direct care of this critically ill patient, excluding procedure time. ED Disposition Clinical Impression: Hyperemesis arising during , Nausea and vomiting in prior to 22 weeks gestation Disposition: - TO HOME OR SELFCARE Is pt being admited?: No Does the pt Need Aspirin: No Condition: Stable Instructions: Nausea and Vomiting, Adult, [id number], Hyperemesis Gravidarum, Morning Sickness, [id number] Additional Instructions: All lab test results were reviewed and are all nonactionable. Therefore take medications, drink plenty of fluids and follow-up with your [employer]PUT[employer]IST physician in 3 to 5 days for reevaluation. Return to the ED immediately if your symptoms get worse. Prescriptions: cephALEXin [Keflex] 500 mg PO Q8HR #30 cap Famotidine [Pepcid] 20 mg PO Q12H #60 tablet Promethazine [Phenergan] 25 mg PO Q6HR PRN #3 tab PRN Reason: Nausea Promethazine [Phenergan SUPPOS] 25 mg AL Q6HR PRN #20 supp.rect PRN Reason: Nausea Referrals: JACINTO JACKSON MD [Staff Physician] - 3-5 Days Time of Disposition: 04:10 Print Language: MOHAWK
[2020-11-01 21:54] LABS: BUN/Creatinine Ratio 12; Blood Urea Nitrogen 7 mg/dL (7-17); Calcium 9.6 mg/dL (8.4-10.2); Hemolysis Index 73
[2020-11-01] MEDS ORDERED: D5W/0.45% NACL 1,000 ML IV SCH (22:00)
[2020-11-01 22:42] LABS: Albumin 4.4 g/dL (3.9-5); Bilirubin,Direct 0.2 mg/dL (0-0.2)
[2020-11-01 23:20] VITALS: BP 134/89
[2020-11-02 00:32] LABS: Bacteria,Urine 1+ /HPF (Negative); Bilirubin,Urine SM (Negative); Blood,Urine SM (Negative); Color,Urine Amber (Yellow); Mucus,Urine 3+ /HPF
[2020-11-02] MEDS ORDERED: METOCLOPRAMIDE 10 MG/2 ML INJ IV ONE (00:41)
[2020-11-02 00:45] LABS: Protein,Urine >500 mg/dL (Negative)
[2020-11-02 00:55] LABS: Ictotest,Urine Positive (Negative)
[2020-11-02] MEDS ORDERED: D5W/0.45% NACL 1,000 ML IV SCH (01:00)
[2020-11-02] MEDS ORDERED: PROCHLORPERAZINE EDISYLATE 10 MG/2 ML VIAL IV ONE (03:04)
== END 2020-11-02 05:10 | disposition home or self-care (01) ==
LOC: ED 21:01
DX: O21.8 Other vomiting complicating pregnancy (principal); Z3A.22 22 weeks gestation of pregnancy; F41.9 Anxiety disorder, unspecified; Z79.899 Other long term (current) drug therapy
CPT/HCPCS: 36415; 80048; 80076; 81001; 82550; 83735; 84702; 85027; 85610; 87086; 96361; 96374; 96375; 99283; J0780; J2765

== ENCOUNTER 2021-01-11 12:55 | Emergency (ER) | payer MEDICAID ==
--- NOTE | 2021-01-11 15:32 | Event Note ---
ED Screening Note Date of service: 01/11/21 Time: 15:30 ED Screening Note: 25-year-old female, 18 weeks and 6 days gestation, presents to emergency department with complaints of lower abdominal cramps, nausea, and vomiting for 2 days. Patient was evaluated by her home demonstrator this morning. She was found to be hypertensive at the OB clinic and was sent to the emergency department for further evaluation. She does not have a history of hypertension and did not have blood pressure issues with her last . Patient also endorses intermittent headaches and blurred vision. No complications with this to date. Seen by nabor Loife, this morning. Denies vaginal ble eding and vaginal discharge. Blood pressure in triage within normal limits. General: Awake, appropriately interactive, no acute distress. Neck: Supple. Full range of motion intact. Cardiovascular: Normal peripheral perfusion. Pulmonary: No respiratory distress. Patient is speaking normally without use of accessory muscles. Abdomen: Soft, nondistended. Diffuse lower abdominal tenderness without focal guarding, rigidity, or rebound. Skin: No apparent rashes or lesions. Neurological: No facial asymmetry. Speech is clear. Follows commands. Patient is alert and oriented. Musculoskeletal: Moves all four extremities spontaneously with normal range of motion. Psych: Cooperative. Appropriate mood and affect. I have greeted and performed a focused rapid initial assessment of this patient. A comprehensive ED assessment and evaluation of the patient, analysis of all test results, and completion of the medical decision-making process will be conducted by additional ED providers. This initial assessment/diagnostic orders/clinical plan/treatment(s) is/are subject to change based on patients health status, clinical progression and re-assessment. Further treatment and workup at subsequent clinical provider's discretion. Patient/guardian urged not to elope from the ED as their condition may be serious if not clinically assessed and managed.
[2021-01-11 16:17] LABS: Alanine Aminotransferase 21 units/L (7-56); Albumin 3.8 g/dL (3.9-5); Blood Urea Nitrogen 4 mg/dL (7-17); Calcium 9.4 mg/dL (8.4-10.2); Hemolysis Index 5
[2021-01-11 16:21] LABS: Basophils % (Auto) 0.4 % (0.0-1.8); Eosinophils # (Auto) 0.1 K/mm3 (0.0-0.4); Eosinophils % (Auto) 1.3 % (0.0-4.3); Hematocrit 39.2 % (30.3-42.9); Hemoglobin 13.5 gm/dl (10.1-14.3); Lymphocytes # (Auto) 1.3 K/mm3 (1.2-5.4); Lymphocytes % (Auto) 16.8 % (13.4-35.0); Mean Corpuscular HGB Conc 35 % (30-34); Mean Corpuscular Volume 93 fl (79-97); Monocytes # (Auto) 0.4 K/mm3 (0.0-0.8); Monocytes % (Auto) 5.7 % (0.0-7.3); Platelet Count 419 K/mm3 (140-440); Red Blood Count 4.22 M/mm3 (3.65-5.03); Red Cell Distribution Width 13.5 % (13.2-15.2)
[2021-01-11 16:30] LABS: BUN/Creatinine Ratio 8
--- NOTE | 2021-01-11 16:47 | Ultrasound Report ---
ULTRASOUND OBSTETRIC COMPLETE INDICATION / CLINICAL INFORMATION: Lower abdominal cramping. Hypertension. Clinical Gestational Age (GA) in weeks.days: 18.6 TECHNIQUE: Transabdominal. COMPARISON: None available. FINDINGS: NUMBER: Single PRESENTATION: breech PLACENTA: posterior and free of the os. MATERNAL ADNEXA: No significant abnormality. AMNIOTIC FLUID VOLUME: normal AMNIOTIC FLUID INDEX (RODRIGO) in cm (if measured): Not measured ANATOMY: organs (including the bladder, stomach, kidneys, heart, umbilical cord, diaphragm, cord inserti on, spine and intracranial structures) are visualized and show no significant abnormality with the fo llowing exception(s): None. MEASUREMENTS: - Biparietal Diameter = 4.1 cm = 18.2 weeks.days - Head Circumference = 15.9 cm = 18.5 weeks.days - Abdominal Circumference = 13.7 cm = 19.1 weeks.days - Femur Length = 2.8 cm = 18.4 weeks.days - Estimated Weight (in grams, if calculated): 260 - Heart Rate (beats per minute): 162 ADDITIONAL FINDINGS: None. PERCENTILE ESTIMATED WEIGHT (if calculated): 44 AVERAGE ULTRASOUND AGE (AUA) in weeks.days = 18.5 IMPRESSION: 1. Single intrauterine with AUA of 18.5 weeks.days 2. No significant sonographic abnormality. Signer Name: Nico Coburn MD Signed: 01/11/2021 4:30 PM Workstation Name: [id number]
[2021-01-11 17:32] LABS: Bacteria,Urine 1+ /HPF (Negative); Bilirubin,Urine NEG (Negative); Blood,Urine MOD (Negative); Color,Urine Amber (Yellow); Mucus,Urine 2+ /HPF; Urobilinogen,Urine < 2.0 mg/dL (<2.0)
--- NOTE | 2021-01-11 17:51 | Emergency Department Report ---
ED General Adult HPI - General Chief complaint: Abdominal Pain Stated complaint: 5 MONTHS /BLOOD PRESSURE/CRAMPING Time Seen by Provider: 01/11/21 16:18 Source: patient Mode of arrival: Ambulatory Limitations: No Limitations - History of Present Illness Initial comments: 25-year-old female, 18 weeks and 6 days gestation, presents to emergency department with complaints of lower abdominal cramps, nausea, and vomiting for 2 days. Patient was evaluated by her transistor tester this morning. She was found to be hypertensive at the OB clinic and was sent to the emergency department for further evaluation. She does not have a history of hypertension and did not have blood pressure issues with her last . She reports her blood pressure was around 140/103 at her OBs office today. Patient also endorses intermittent headaches and blurred vision. She denies any current headache or blurry vision. No complications with this to date. Seen by nabor Loife, this morning. Patient states she is otherwise feeling well and denies any vaginal bleeding/discharge, dyspareunia, urinary frequency/dysuria/hematuria, stool changes, or fever/chills/sweats. She is G2, Severity scale (0 -10): 3 - Related Data Previous Rx's Medication Instructions Recorded Last Taken Type Ferrous Sulfate [Feosol 325 MG tab] 325 mg PO TID #90 tablet 09/09/14 10/09/14 16:00 Rx 1 tablet Butalb/Acetaminophen/Caffeine 1 each PO Q6HR PRN #20 capsule 01/16/15 Unknown Rx [Fioricet 50-300-40 mg Capsule] Ibuprofen [Motrin 800 MG tab] 800 mg PO Q8H PRN #30 tablet 01/16/15 Unknown Rx Ibuprofen [Motrin 800 MG tab] 800 mg PO Q8HR PRN #30 tablet 07/25/16 Unknown Rx Cyclobenzaprine [Flexeril] 10 mg PO TID PRN #15 tablet 05/07/17 Unknown Rx Ibuprofen [Motrin] 600 mg PO Q8H PRN #15 tablet 05/07/17 Unknown Rx Dicyclomine [Bentyl] 10 mg PO QID 3 Days capsule 05/04/18 Unknown Rx Diphenoxylate HCl/Atropine 1 each PO BID PRN #10 tablet 05/04/18 Unknown Rx [Lomotil 2.5-0.025 mg Tablet] Nitrofurantoin Monohyd/M-Cryst 100 mg PO BID #14 capsule 05/04/18 Unknown Rx [Macrobid 100 mg Capsule] Benzonatate [Tessalon Perle] 100 mg PO TID PRN #30 capsule 09/27/18 Unknown Rx Cetirizine HCl [Zyrtec 10mg tab] 10 mg PO DAILY #30 tablet 09/27/18 Unknown Rx Fluticasone [Flonase] 1 spray NS QDAY #1 bottle 09/27/18 Unknown Rx Oseltamivir Phosphate [Tamiflu] 75 mg PO BID 5 Days #10 capsule 09/27/18 Unknown Rx Ibuprofen [Motrin] 600 mg PO Q8H PRN #20 tablet 05/01/19 Unknown Rx Helena Root [Helena] 250 mg PO QID PRN #40 capsule 10/25/20 Unknown Rx Metoclopramide [Reglan] 10 mg PO TID PRN #30 tab 10/25/20 Unknown Rx Nitrofurantoin [place]/M-Cryst 100 mg PO Q12HR 10 Days #20 capsule 10/25/20 Unknown Rx [Macrobid CAP] Famotidine [Pepcid] 20 mg PO Q12H #60 tablet 11/02/20 Unknown Rx Promethazine [Phenergan SUPPOS] 25 mg [place] Q6HR PRN #20 supp.rect 11/02/20 Unknown Rx Promethazine [Phenergan] 25 mg PO Q6HR PRN #3 tab 11/02/20 Unknown Rx cephALEXin [Keflex] 500 mg PO Q8HR #30 cap 11/02/20 Unknown Rx Allergies Allergy/AdvReac Type Severity Reaction Status Date / Time No Known Allergies Allergy Verified 11/01/20 21:18 ED Review of Systems ROS: Stated complaint: 5 MONTHS /BLOOD PRESSURE/CRAMPING Other details as noted in HPI Constitutional: denies: chills, diaphoresis, fever, malaise Respiratory: denies: cough, shortness of breath Cardiovascular: denies: chest pain Gastrointestinal: abdominal pain. denies: nausea, vomiting, diarrhea, constipation Genitourinary: denies: urgency, dysuria, frequency, hematuria, discharge, abnormal menses, dyspareunia Skin: denies: change in color Hematological/Lymphatic: denies: swollen glands ED Past Medical Hx - Past Medical History Previous Medical History?: Yes Hx Hypertension: No Hx Congestive Heart Failure: No Hx Diabetes: No Hx Deep Vein Thrombosis: No Hx Renal Disease: No Hx Sickle Cell Disease: No Hx Headaches / Migraines: No Hx Seizures: No Hx Psychiatric Treatment: Yes (anxiety) Hx Asthma: No Hx COPD: No Hx HIV: No - Surgical History Past Surgical History?: Yes Hx Appendectomy: No Additional Surgical History: csection - Social History Smoking Status: Never Smoker Substance Use Type: None - Medications Home Medications: Home Medications Medication Instructions Recorded Confirmed Last Taken Type Ferrous Sulfate [Feosol 325 MG tab] 325 mg PO TID #90 tablet 09/09/14 11/22/14 10/09/14 16:00 Rx 1 tablet Butalb/Acetaminophen/Caffeine 1 each PO Q6HR PRN #20 capsule 01/16/15 Unknown Rx [Fioricet 50-300-40 mg Capsule] Ibuprofen [Motrin 800 MG tab] 800 mg PO Q8H PRN #30 tablet 01/16/15 Unknown Rx Ibuprofen [Motrin 800 MG tab] 800 mg PO Q8HR PRN #30 tablet 07/25/16 Unknown Rx Cyclobenzaprine [Flexeril] 10 mg PO TID PRN #15 tablet 05/07/17 Unknown Rx Ibuprofen [Motrin] 600 mg PO Q8H PRN #15 tablet 05/07/17 Unknown Rx Dicyclomine [Bentyl] 10 mg PO QID 3 Days capsule 05/04/18 Unknown Rx Diphenoxylate HCl/Atropine 1 each PO BID PRN #10 tablet 05/04/18 Unknown Rx [Lomotil 2.5-0.025 mg Tablet] Nitrofurantoin Monohyd/M-Cryst 100 mg PO BID #14 capsule 05/04/18 Unknown Rx [Macrobid 100 mg Capsule] Benzonatate [Tessalon Perle] 100 mg PO TID PRN #30 capsule 09/27/18 Unknown Rx Cetirizine HCl [Zyrtec 10mg tab] 10 mg PO DAILY #30 tablet 09/27/18 Unknown Rx Fluticasone [Flonase] 1 spray NS QDAY #1 bottle 09/27/18 Unknown Rx Oseltamivir Phosphate [Tamiflu] 75 mg PO BID 5 Days #10 capsule 09/27/18 Unknown Rx Ibuprofen [Motrin] 600 mg PO Q8H PRN #20 tablet 05/01/19 Unknown Rx Helena Root [Helena] 250 mg PO QID PRN #40 capsule 10/25/20 Unknown Rx Metoclopramide [Reglan] 10 mg PO TID PRN #30 tab 10/25/20 Unknown Rx Nitrofurantoin [place]/M-Cryst 100 mg PO Q12HR 10 Days #20 capsule 10/25/20 Unknown Rx [Macrobid CAP] Famotidine [Pepcid] 20 mg PO Q12H #60 tablet 11/02/20 Unknown Rx Promethazine [Phenergan SUPPOS] 25 mg [place] Q6HR PRN #20 supp.rect 11/02/20 Unknown Rx Promethazine [Phenergan] 25 mg PO Q6HR PRN #3 tab 11/02/20 Unknown Rx cephALEXin [Keflex] 500 mg PO Q8HR #30 cap 11/02/20 Unknown Rx ED Physical Exam - General Limitations: No Limitations General appearance: alert, in no apparent distress - Head Head exam: Present: atraumatic, normocephalic - Eye Eye exam: Present: normal appearance, PERRL, EOMI. Absent: scleral icterus - Neck Neck exam: Present: normal inspection - Respiratory Respiratory exam: Present: normal lung sounds bilaterally. Absent: respiratory distress - Cardiovascular Cardiovascular Exam: Present: regular rate, normal rhythm. Absent: systolic murmur, diastolic murmur, rubs, gallop - GI/Abdominal GI/Abdominal exam: Present: soft, normal bowel sounds. Absent: tenderness, rebound, rigid - Extremities Exam Extremities exam: Present: full ROM - Back Exam Back exam: Present: normal inspection - Neurological Exam Neurological exam: Present: alert, oriented X3, CN II-XII intact, normal gait. Absent: motor sensory deficit - Expanded Neurological Exam Expanded Speech: Present: fluid speech Cerebellar function: Finger to Nose: Normal, Romberg: Normal Sensory exam: Upper Extremity Light Touch: Normal, Lower Extremity Light Touch: Normal Motor strength exam: RUE: 5, LUE: 5, RLE: 5, LLE: 5 - Psychiatric Psychiatric exam: Present: normal affect, normal mood - Skin Skin exam: Present: warm, dry, intact, normal color. Absent: rash, cyanosis, diaphoretic, abrasion ED Course Vital Signs 01/11/21 01/11/21 13:51 18:02 Temperature 98.2 F Pulse Rate 88 Respiratory 18 Rate Blood Pressure 119/74 Blood Pressure 109/69 [Left] O2 Sat by Pulse 98 Oximetry ED Medical Decision Making - Lab Data Result diagrams: 01/11/21 15:31 01/11/21 15:31 Lab Results 01/11/21 01/11/21 01/11/21 Range/Units 15:31 15:31 15:31 WBC 7.7 (4.5-11.0) K/mm3 RBC 4.22 (3.65-5.03) M/mm3 Hgb 13.5 (10.1-14.3) gm/dl Hct 39.2 (30.3-42.9) % MCV 93 (79-97) fl MCH 32 (28-32) pg MCHC 35 H (30-34) % RDW 13.5 (13.2-15.2) % Plt Count 419 (140-440) K/mm3 Lymph % (Auto) 16.8 (13.4-35.0) % Clayton % (Auto) 5.7 (0.0-7.3) % Eos % (Auto) 1.3 (0.0-4.3) % Baso % (Auto) 0.4 (0.0-1.8) % Lymph # (Auto) 1.3 (1.2-5.4) K/mm3 Clayton # (Auto) 0.4 (0.0-0.8) K/mm3 Eos # (Auto) 0.1 (0.0-0.4) K/mm3 Baso # (Auto) 0.0 (0.0-0.1) K/mm3 Seg Neutrophils % 75.8 H (40.0-70.0) % Seg Neutrophils # 5.8 (1.8-7.7) K/mm3 Sodium 135 L (137-145) mmol/L Potassium 4.5 (3.6-5.0) mmol/L Chloride 98.8 (98-107) mmol/L Carbon Dioxide 24 (22-30) mmol/L Anion Gap 17 mmol/L BUN 4 L (7-17) mg/dL Creatinine 0.5 L (0.6-1.2) mg/dL Estimated GFR > 60 ml/min BUN/Creatinine Ratio 8 % Glucose 95 (65-100) mg/dL Calcium 9.4 (8.4-10.2) mg/dL Magnesium 1.80 (1.7-2.3) mg/dL Total Bilirubin 0.70 (0.1-1.2) mg/dL AST 19 (5-40) units/L ALT 21 (7-56) units/L Alkaline Phosphatase 71 (35-129) units/L Total Protein 7.5 (6.3-8.2) g/dL Albumin 3.8 L (3.9-5) g/dL Albumin/Globulin Ratio 1.0 % HCG, Quant 9605 H (0-4) mIU/mL Urine Color (Yellow) Urine Turbidity (Clear) Urine pH (5.0-7.0) Ur Specific Manley (1.003-1.030) Urine Protein (Negative) mg/dL Urine Glucose (UA) (Negative) mg/dL Urine Ketones (Negative) mg/dL Urine Blood (Negative) Urine Nitrite (Negative) Urine Bilirubin (Negative) Urine Urobilinogen (<2.0) mg/dL Ur Leukocyte Esterase (Negative) Urine WBC (Auto) (0.0-6.0) /HPF Urine RBC (Auto) (0.0-6.0) /HPF U Epithel Cells (Auto) (0-13.0) /HPF Urine Bacteria (Auto) (Negative) /HPF Urine Mucus /HPF Blood Type 01/11/21 01/11/21 Range/Units 15:31 Unknown WBC (4.5-11.0) K/mm3 RBC (3.65-5.03) M/mm3 Hgb (10.1-14.3) gm/dl Hct (30.3-42.9) % MCV (79-97) fl MCH (28-32) pg MCHC (30-34) % RDW (13.2-15.2) % Plt Count (140-440) K/mm3 Lymph % (Auto) (13.4-35.0) % Clayton % (Auto) (0.0-7.3) % Eos % (Auto) (0.0-4.3) % Baso % (Auto) (0.0-1.8) % Lymph # (Auto) (1.2-5.4) K/mm3 Clayton # (Auto) (0.0-0.8) K/mm3 Eos # (Auto) (0.0-0.4) K/mm3 Baso # (Auto) (0.0-0.1) K/mm3 Seg Neutrophils % (40.0-70.0) % Seg Neutrophils # (1.8-7.7) K/mm3 Sodium (137-145) mmol/L Potassium (3.6-5.0) mmol/L Chloride (98-107) mmol/L Carbon Dioxide (22-30) mmol/L Anion Gap mmol/L BUN (7-17) mg/dL Creatinine (0.6-1.2) mg/dL Estimated GFR ml/min BUN/Creatinine Ratio % Glucose (65-100) mg/dL Calcium (8.4-10.2) mg/dL Magnesium (1.7-2.3) mg/dL Total Bilirubin (0.1-1.2) mg/dL AST (5-40) units/L ALT (7-56) units/L Alkaline Phosphatase (35-129) units/L Total Protein (6.3-8.2) g/dL Albumin (3.9-5) g/dL Albumin/Globulin Ratio % HCG, Quant (0-4) mIU/mL Urine Color Mary (Yellow) Urine Turbidity Slightly-cloudy (Clear) Urine pH 5.0 (5.0-7.0) Ur Specific Manley 1.018 (1.003-1.030) Urine Protein 30 mg/dl (Negative) mg/dL Urine Glucose (UA) Neg (Negative) mg/dL Urine Ketones 20 (Negative) mg/dL Urine Blood Mod (Negative) Urine Nitrite Neg (Negative) Urine Bilirubin Neg (Negative) Urine Urobilinogen < 2.0 (<2.0) mg/dL Ur Leukocyte Esterase Neg (Negative) Urine WBC (Auto) 4.0 (0.0-6.0) /HPF Urine RBC (Auto) 28.0 (0.0-6.0) /HPF U Epithel Cells (Auto) 9.0 (0-13.0) /HPF Urine Bacteria (Auto) 1+ (Negative) /HPF Urine Mucus 2+ /HPF Blood Type A POSITIVE - Radiology Data Radiology results: report reviewed ULTRASOUND OBSTETRIC COMPLETE INDICATION / CLINICAL INFORMATION: Lower abdominal cramping. Hypertension. Clinical Gestational Age (GA) in weeks.days: 18.6 TECHNIQUE: Transabdominal. COMPARISON: None available. FINDINGS: NUMBER: Single PRESENTATION: breech PLACENTA: posterior and free of the os. MATERNAL ADNEXA: No significant abnormality. AMNIOTIC FLUID VOLUME: normal AMNIOTIC FLUID INDEX (RODRIGO) in cm (if measured): Not measured ANATOMY: organs (including the bladder, stomach, kidneys, heart, umbilical cord, diaphragm, cord insertion, spine and intracranial structures) are visualized and show no significant abnormality with the following exception(s): None. MEASUREMENTS: - Biparietal Diameter = 4.1 cm = 18.2 weeks.days - Head Circumference = 15.9 cm = 18.5 weeks.days - Abdominal Circumference = 13.7 cm = 19.1 weeks.days - Femur Length = 2.8 cm = 18.4 weeks.days - Estimated Weight (in grams, if calculated): 260 - Heart Rate (beats per minute): 162 ADDITIONAL FINDINGS: None. PERCENTILE ESTIMATED WEIGHT (if calculated): 44 AVERAGE ULTRASOUND AGE (AUA) in weeks.days = 18.5 IMPRESSION: 1. Single intrauterine with AUA of 18.5 weeks.days 2. No significant sonographic abnormality. - Medical Decision Making 25-year-old female, 18 weeks and 6 days gestation, presents to emergency department with complaints of lower abdominal cramps, nausea, and vomiting for 2 days. Patient was evaluated by her transistor tester this morning. She was found to be hypertensive at the OB clinic and was sent to the emergency department for further evaluation. She does not have a history of hypertension and did not have blood pressure issues with her last . She reports her blood pressure was around 140/103 at her OBs office today. Patient also endors es intermittent headaches and blurred vision. She denies any current headache or blurry vision. No complications with this to date. Seen by Teresita transistor tester, this morning. Patient states she is otherwise feeling well and denies any vaginal bleeding/discharge, dyspareunia, urinary frequenc y/dysuria/hematuria, stool changes, or fever/chills/sweats. Physical exam is normal. Patient neurologically intact. Ultrasound shows uncomplicated 18.5-week IUP. No significant abnormalities noted on CBC, CMP, or UA. Blood pressure remains normal here in ED-recheck of BP showed 109/69. Patient denies any current symptoms and states she is feeling well. Recommend follow-up with her GREETING CARD WRITER within 48 hours. Discussed signs and symptoms that should prompt immediate return to the emergency department in detail with patient who verbalizes understanding. Critical care attestation.: If time is entered above; I have spent that time in minutes in the direct care of this critically ill patient, excluding procedure time. ED Disposition Clinical Impression: 18 weeks gestation of Abdominal pain during Qualifiers: Trimester: second trimester Qualified Code(s): O26.892 - Other specified related conditions, second trimester Disposition: DC-01 TO HOME OR SELFCARE Is pt being admited?: No Condition: Stable Instructions: Abdominal Pain During , [id number], Abdominal Pain (ED) Additional Instructions: Please follow-up with your GREETING CARD WRITER within 48 hours Referrals: PRIMARY CARE, [Primary Care Provider] - 3-5 Days
[2021-01-11 18:02] VITALS: BP 109/69
== END 2021-01-11 18:18 | disposition home or self-care (01) ==
LOC: ED 12:55
DX: O26.892 Other specified pregnancy related conditions, second trimester (principal); R10.30 Lower abdominal pain, unspecified; Z3A.12 12 weeks gestation of pregnancy; Z79.899 Other long term (current) drug therapy; Z98.890 Other specified postprocedural states
CPT/HCPCS: 36415; 76805; 80053; 81001; 83735; 84702; 85025; 86900; 86901

== ENCOUNTER 2021-03-22 11:24 | Outpatient (CLI) | payer MEDICAID ==
[2021-03-22 12:23] VITALS: BP 105/61
[2021-03-22] MEDS ORDERED: LACTATED RINGERS 1,000 ML IV ONE (12:23)
[2021-03-22] MEDS ORDERED: ceFAZolin/NS 1 GM/50 ML 1 GM/50 ML BAG IV ONE (13:00)
== END 2021-03-22 14:12 | disposition home or self-care (01) ==
LOC: TRG 11:24 → APU 11:28 → TRG 14:12
PROVIDERS: ATTEND Obstetrics & Gynecology
DX: O23.43 Unspecified infection of urinary tract in pregnancy, third trimester (principal); O62.9 Abnormality of forces of labor, unspecified; Z3A.28 28 weeks gestation of pregnancy
CPT/HCPCS: 59025; 96365; J0690; J7120; 96360; 96367

== ENCOUNTER 2021-05-04 16:25 | Outpatient (CLI) | payer MEDICAID ==
[2021-05-04 17:39] VITALS: BP 122/62
[2021-05-04 19:06] LABS: Bilirubin,Urine NEG (Negative); Blood,Urine LG (Negative); Color,Urine Amber (Yellow); Mucus,Urine 3+ /HPF
[2021-05-04] MEDS ORDERED: LACTATED RINGERS 500 ML IV ONE (20:00)
== END 2021-05-04 19:27 | disposition home or self-care (01) ==
LOC: TRG 16:25 → APU 16:27 → TRG 19:27
DX: Z34.93 Encounter for supervision of normal pregnancy, unspecified, third trimester (principal); Z3A.35 35 weeks gestation of pregnancy
CPT/HCPCS: 59025; 81001; 87086

== ENCOUNTER 2021-05-16 22:52 | Inpatient (IN) | payer MEDICAID ==
[2021-05-16 19:00] LABS: Bacteria,Urine 1+ /HPF (Negative); Bilirubin,Urine NEG (Negative); Blood,Urine MOD (Negative); Color,Urine Amber (Yellow); Mucus,Urine 3+ /HPF
[~2021-05-16 22:52] MED LIST: ACETAMINOPHEN 325 MG TAB PO PRN; AMPICILLIN/NS 2 GM/100 ML 2 GM/100 ML BAG IV ONE; BUTORPHANOL 2 MG/1 ML INJ IV PRN; CARBOPROST TROMETHAMINE 250 MCG/1 ML INJ IM PRN; LACTATED RINGERS 1,000 ML IV ONE; LIDOCAINE (2%) 20 MG/1 ML VIAL 20 ML MDV INFILTRATI ONE; LOPERAMIDE 2 MG CAP PO PRN; METHYLERGONOVINE MALEATE 0.2 MG/ML VIAL IM PRN; MINERAL OIL 30 ML ORAL LIQD PO PRN; OXYTOCIN 10 UNIT/1 ML INJ IM PRN; TERBUTALINE 1 MG/1 ML INJ SUB-Q PRN; cefTRIAXone/NS 1 GM/50 ML 1 GM/50 ML BAG IV ONE; ePHEDrine SULFATE 50 MG/1 ML INJ IV PRN; miSOPROStol 200 MCG TAB PR PRN
[2021-05-16] MEDS ORDERED: LACTATED RINGERS 1,000 ML IV SCH (23:00)
[2021-05-16] MEDS ORDERED: OXYTOCIN DRIP 30 UNITS/500 ML BAG IV SCH (23:00)
--- NOTE | 2021-05-16 23:02 | History and Physical Report ---
History of Present Illness Date of admission: 05/16/21 Chief complaint: Contractions, lower back pain. History of present illness: 25 year old presents with complaint of contractions for several days, worsening today. Patient denies leaking of fluid or vaginal bleeding. Patient complains of lower back pain. Denies flank pain, fever or chills. Patient states she receives care at [facility] but no records are available. EDC is 06/08/21 (self reported by patient). US available done on 01/11/21 here which shows EDC is 06/09/21 and placenta is posterior and free of os. significant for the following: hyperemesis gravidarum, cholecystectomy during , chlamydia (treated and cured per pt. report), UTI (treated during ), and obesity. No labs are available. labs were drawn upon admission. Past History Past Medical History: asthma, other (obesity) Past Surgical History: cholecystectomy (during ) [facility] History: chlamydia (treated in April 2021 and cured per pt. report), trichomonas. denies: abnormal PAP smear, gonorrhea, hepatitis B, hepatitis C, herpes, HIV, syphilis Family/Genetic History: hypertension Social history: lives with family, full code. denies: smoking, alcohol abuse, prescription drug abuse, IV drug use - Obstetrical History : 2 Para: 1 Hx # Term Pregnancies: 1 Number of Pregnancies: 0 Spontaneous Abortions: 0 Induced : 0 Number of Living Children: 1 Medications and Allergies Allergies Allergy/AdvReac Type Severity Reaction Status Date / Time No Known Allergies Allergy Verified 11/01/20 21:18 Home Medications Medication Instructions Recorded Confirmed Last Taken Type Ferrous Sulfate [Feosol 325 MG tab] 325 mg PO TID #90 tablet 09/09/14 11/22/14 10/09/14 16:00 Rx 1 tablet Butalb/Acetaminophen/Caffeine 1 each PO Q6HR PRN #20 capsule 01/16/15 Unknown Rx [Fioricet 50-300-40 mg Capsule] Ibuprofen [Motrin 800 MG tab] 800 mg PO Q8H PRN #30 tablet 01/16/15 Unknown Rx Ibuprofen [Motrin 800 MG tab] 800 mg PO Q8HR PRN #30 tablet 07/25/16 Unknown Rx Cyclobenzaprine [Flexeril] 10 mg PO TID PRN #15 tablet 05/07/17 Unknown Rx Ibuprofen [Motrin] 600 mg PO Q8H PRN #15 tablet 05/07/17 Unknown Rx Dicyclomine [Bentyl] 10 mg PO QID 3 Days capsule 05/04/18 Unknown Rx Diphenoxylate HCl/Atropine 1 each PO BID PRN #10 tablet 05/04/18 Unknown Rx [Lomotil 2.5-0.025 mg Tablet] Nitrofurantoin Monohyd/M-Cryst 100 mg PO BID #14 capsule 05/04/18 Unknown Rx [Macrobid 100 mg Capsule] Benzonatate [Tessalon Perle] 100 mg PO TID PRN #30 capsule 09/27/18 Unknown Rx Cetirizine HCl [Zyrtec 10mg tab] 10 mg PO DAILY #30 tablet 09/27/18 Unknown Rx Fluticasone [Flonase] 1 spray NS QDAY #1 bottle 09/27/18 Unknown Rx Oseltamivir Phosphate [Tamiflu] 75 mg PO BID 5 Days #10 capsule 09/27/18 Unknown Rx Ibuprofen [Motrin] 600 mg PO Q8H PRN #20 tablet 05/01/19 Unknown Rx Helena Root [Helena] 250 mg PO QID PRN #40 capsule 10/25/20 Unknown Rx Metoclopramide [Reglan] 10 mg PO TID PRN #30 tab 10/25/20 Unknown Rx Nitrofurantoin [place]/M-Cryst 100 mg PO Q12HR 10 Days #20 capsule 10/25/20 Unknown Rx [Macrobid CAP] Famotidine [Pepcid] 20 mg PO Q12H #60 tablet 11/02/20 Unknown Rx Promethazine [Phenergan SUPPOS] 25 mg [place] Q6HR PRN #20 supp.rect 11/02/20 Unknown Rx Promethazine [Phenergan] 25 mg PO Q6HR PRN #3 tab 11/02/20 Unknown Rx cephALEXin [Keflex] 500 mg PO Q8HR #30 cap 11/02/20 Unknown Rx Active Meds: Active Medications Acetaminophen (Acetaminophen 325 Mg Tab) 650 mg PO Q4H PRN PRN Reason: Pain, Mild (1-3) Carboprost Tromethamine (Carboprost Tromethamine 250 Mcg/1 Ml Inj) 250 mcg IM ONCE PRN PRN Reason: Uterine Bleeding Ephedrine Sulfate (Ephedrine Sulfate 50 Mg/1 Ml Inj) 10 mg IV Q2M PRN PRN Reason: Hypotension Fentanyl (Fentanyl 100 Mcg/2 Ml Inj) 100 mcg IV Q2H PRN PRN Reason: Pain,Severe (7-10) LABOR PAIN Lactated Ringer's (Lactated Ringers) 1,000 mls @ 125 mls/hr IV DIRECT RIVER Oxytocin/Sodium Chloride (Pitocin/Ns 30 Unit/500ml) 30 units in 500 mls @ 40 mls/hr IV TITR RIVER; Protocol Ampicillin Sodium (Ampicillin/Ns 2 Gm/100 Ml) 2 gm in 100 mls @ 100 mls/hr IV ONCE ONE; Protocol Stop: 05/16/21 23:51 Ampicillin Sodium (Ampicillin/Ns 1 Gm/50 Ml) 1 gm in 50 mls @ 100 mls/hr IV Q4H RIVER; Protocol Lidocaine (Lidocaine (2%) 20 Mg/1 Ml Vial 20 Ml Mdv) 20 ml INFILTRATI ONCE ONE Stop: 05/16/21 22:53 Loperamide HCl (Loperamide 2 Mg Cap) 2 mg PO ONCE PRN PRN Reason: give with Hemabate Methylergonovine Maleate (Methylergonovine Maleate 0.2 Mg/Ml Vial) 0.2 mg IM ONCE PRN PRN Reason: Uterine Bleeding Mineral Oil (Mineral Oil 30 Ml Oral Liqd) 30 ml PO QHS PRN PRN Reason: Constipation Misoprostol (Misoprostol 200 Mcg Tab) 800 mcg HI ONCE PRN PRN Reason: Uterine Bleeding Oxytocin (Oxytocin 10 Unit/1 Ml Inj) 10 unit IM ONCE PRN PRN Reason: Uterine Bleeding Terbutaline Sulfate (Terbutaline 1 Mg/1 Ml Inj) 0.25 mg SUB-Q ONCE PRN PRN Reason: Hyperstimulation/Hypertonicity Review of Systems All systems: negative (contractions, lower back pain) - Vital Signs Vital signs: Vital Signs Pulse Pulse Ox 40 L 76 L 05/16/21 17:51 05/16/21 17:51 Temp Pulse Resp BP Pulse Ox 98.9 F 107 H 16 121/66 100 05/16/21 17:54 05/16/21 23:00 05/16/21 17:54 05/16/21 17:54 05/16/21 23:00 - Physical Exam Abdomen: Positive: normal appearance, soft. Negative: distention, tenderness, guarding, rigidity Genitourinary (Female): Positive: normal external genitalia, normal perenium Vagina: Positive: normal moisture Uterus: Positive: enlarged. Negative: tender Anus/Rectum: Positive: normal perianal skin Extremities: Negative: tenderness - Obstetrical FHR: category 2 Uterine Contraction Monitor Mode: External Cervical Dilatation: 3 Cervical Effacement Percentage: 80 station: -2 Uterine Contraction Pattern: Regular Uterine Contraction Intensity: Moderate Results Abnormal lab results 05/16/21 Range/Units Unknown Urine WBC (Auto) 63.0 H (0.0-6.0) /HPF U Epithel Cells (Auto) 51.0 H (0-13.0) /HPF All other labs normal. Assessment and Plan A: at 36 weeks, 5 days gestation. Early labor. GBS unknown. UTI; has received Rocephin while in triage. Obesity. No records available. P: Admit. Continuous EFM. Request records. GBS prophylaxis. Urine culture (obtained specimen prior to Rocephin being given in triage). Draw labs.
[2021-05-16] MEDS ORDERED: BETAMET ACET/BETAMET NA PH 6 MG/ML INJ 5 ML MDV IM SCH (23:33)
[2021-05-16] MEDS ORDERED: BETAMET ACET/BETAMET NA PH 6 MG/ML INJ 5 ML MDV IM ONE (23:36)
[2021-05-17] MEDS: fentaNYL 100 MCG/2 ML INJ IV PRN ×2 (00:36→03:15)
[2021-05-17 00:49] LABS: Hematocrit 29.9 % (30.3-42.9); Hemoglobin 9.8 gm/dl (10.1-14.3); Mean Corpuscular HGB Conc 33 % (30-34); Mean Corpuscular Volume 80 fl (79-97); Platelet Count 356 K/mm3 (140-440); Red Blood Count 3.75 M/mm3 (3.65-5.03); Red Cell Distribution Width 14.7 % (13.2-15.2)
[2021-05-17 01:18] LABS: Hepatitis C Virus Antibody Non-Reactive (NonReactive)
[2021-05-17] MEDS ORDERED: FAMOTIDINE 20 MG/2 ML INJ IV ONE (02:00)
[2021-05-17] MEDS: AMPICILLIN/NS 1 GM/50 ML 1 GM/50 ML BAG IV SCH ×2 (03:05→06:28)
[2021-05-17 03:47] LABS: Amphetamine Screen,Urine Negative; Benzodiazepines Screen,Urine Negative; Cannabinoid Screen,Urine Negative; Cocaine Screen,Urine Negative; Methadone Screen,Urine Negative; Opiate Screen,Urine Negative
--- NOTE | 2021-05-17 07:03 | Event Note ---
Date: 05/17/21 No cervical change noted on exam around 6 AM this morning. Contractions still present but have spaced. No LOF or VB. Occasional variable FHR deceleration; normal baseline FHR and moderate variability. BPP/RODRIGO ordered. Consulted with Dr. Wiley re: this patient. Plan is to get BPP/RDORIGO and recheck patient's cervix. If no change, and BPP/RODRIGO is normal patient may be discharged later per MD.
--- NOTE | 2021-05-17 08:18 | Ultrasound Report ---
ULTRASOUND BIOPHYSICAL PROFILE ULTRASOUND OB LIMITED INDICATION: BPP. well-being. TECHNIQUE: Transabdominal ultrasound imaging. COMPARISON: 05/16/2021 FINDINGS: breathing movement = 0 Gross body movement = 2 tone = 2 Qualitative amniotic fluid volume = 2 Total biophysical score = 6/8 Amniotic fluid index is 7.8 cm. Presentation is cephalic. heart rate is 118 beats per minute. IMPRESSION: biophysical profile equals 6/8. Signer Name: Graham Hurtado Jr, MD Signed: 05/17/2021 8:14 AM Workstation Name: [id number]
[2021-05-17 08:53] VITALS: BP 142/69
[2021-05-17] MEDS ORDERED: NIFEdipine*For Tocolysis only* 10 MG CAPSULE PO ONE (09:00)
[2021-05-17] MEDS ORDERED: LIDOCAINE-MPF (1%) 10 MG/1 ML VIAL 5 ML INFILTRATI ONE (09:00)
== END 2021-05-17 09:08 | disposition home or self-care (01) | DRG 781 ==
LOC: APU 22:52 → TRG 22:52 → LD 22:54 → APU 05-17 01:08 → LD 05-17 01:08 → TRG 05-17 09:08 → LD 05-17 13:11 → UNDOADMIN 05-17 13:11
PROVIDERS: ADMIT Obstetrics & Gynecology; ATTEND Obstetrics & Gynecology
DX: O36.8330 Maternal care for abnormalities of the fetal heart rate or rhythm, third trimester, not applicable or unspecified (principal); O23.40 Unspecified infection of urinary tract in pregnancy, unspecified trimester; O99.213 Obesity complicating pregnancy, third trimester; Z3A.36 36 weeks gestation of pregnancy; O99.513 Diseases of the respiratory system complicating pregnancy, third trimester; O23.43 Unspecified infection of urinary tract in pregnancy, third trimester; J45.909 Unspecified asthma, uncomplicated; Z20.822 Contact with and (suspected) exposure to COVID-19
CPT/HCPCS: 36415; 59025; 76815; 76819; 80307; 81001; 85027; 86592; 86706; 86762; 86803; 86850; 86900; 86901; 87086; 87806; 96360; 96365; G0378; J0290; J0696; J0702; J3010; J7120; U0003

== ENCOUNTER 2021-05-18 15:21 | Outpatient (CLI) | payer MEDICAID ==
[2021-05-18 18:15] LABS: Bacteria,Urine 1+ /HPF (Negative); Bilirubin,Urine NEG (Negative); Blood,Urine SM (Negative); Color,Urine Amber (Yellow); Mucus,Urine 3+ /HPF
[2021-05-18 18:46] LABS: Hematocrit 26.8 % (30.3-42.9); Hemoglobin 9.3 gm/dl (10.1-14.3); Mean Corpuscular HGB Conc 35 % (30-34); Mean Corpuscular Volume 80 fl (79-97); Platelet Count 367 K/mm3 (140-440); Red Blood Count 3.34 M/mm3 (3.65-5.03); Red Cell Distribution Width 14.7 % (13.2-15.2)
[2021-05-18 18:50] LABS: Alanine Aminotransferase 8 units/L (7-56); Uric Acid 2.6 mg/dL (3.5-7.6)
[2021-05-18 18:58] VITALS: BP 123/69
== END 2021-05-18 19:24 | disposition home or self-care (01) ==
LOC: APU 15:21 → TRG 15:21 → APU 15:23 → TRG 19:24
PROVIDERS: ATTEND Obstetrics & Gynecology
DX: O13.3 Gestational [pregnancy-induced] hypertension without significant proteinuria, third trimester (principal); Z3A.37 37 weeks gestation of pregnancy
CPT/HCPCS: 36415; 59025; 81001; 82565; 83615; 84450; 84460; 84550; 85027

== ENCOUNTER 2021-05-19 17:17 | Inpatient (IN) | payer MEDICAID ==
[2021-05-19] MEDS ORDERED: OXYTOCIN 10 UNIT/1 ML INJ ONE (17:39)
[2021-05-19] MEDS ORDERED: miSOPROStol 200 MCG TAB PR PRN (17:41)
[2021-05-19] MEDS ORDERED: CARBOPROST TROMETHAMINE 250 MCG/1 ML INJ IM PRN (17:41)
[2021-05-19] MEDS ORDERED: TERBUTALINE 1 MG/1 ML INJ SUB-Q PRN (17:41)
[2021-05-19] MEDS ORDERED: ePHEDrine SULFATE 50 MG/1 ML INJ IV PRN (17:41)
[2021-05-19] MEDS ORDERED: LOPERAMIDE 2 MG CAP PO PRN (18:00)
[2021-05-19] MEDS ORDERED: LACTATED RINGERS 1,000 ML IV SCH (18:30)
[2021-05-19] MEDS ORDERED: OXYTOCIN 10 UNIT/1 ML INJ IM PRN (18:30)
[2021-05-19] MEDS ORDERED: MINERAL OIL 30 ML ORAL LIQD PO PRN (18:30)
[2021-05-19] MEDS ORDERED: NalbUPHINE 10 MG/1 ML INJ IV PRN (18:30)
[2021-05-19] MEDS ORDERED: METHYLERGONOVINE MALEATE 0.2 MG/ML VIAL IM PRN (18:30)
[2021-05-19] MEDS ORDERED: OXYTOCIN DRIP 30 UNITS/500 ML BAG IV SCH ×2 (18:30)
[2021-05-19] MEDS ORDERED: ACETAMINOPHEN 325 MG TAB PO PRN (18:30)
[2021-05-19 18:43] LABS: Hematocrit 32.7 % (30.3-42.9); Hemoglobin 10.5 gm/dl (10.1-14.3); Mean Corpuscular HGB Conc 32 % (30-34); Mean Corpuscular Volume 80 fl (79-97); Platelet Count 397 K/mm3 (140-440); Red Blood Count 4.08 M/mm3 (3.65-5.03); Red Cell Distribution Width 14.9 % (13.2-15.2)
--- NOTE | 2021-05-19 18:47 | History and Physical Report ---
History of Present Illness Date of examination: 05/19/21 Date of admission: 05/19/21 17:18 Chief complaint: painful ctx History of present illness: at 37.1wks by pt report with EDC 06/08/21. Pt came through triage with c/o contractions. pt admits to movement and LOF prior to coming to the hospital. Denies headache. Denies vag bleeding. records later obtained showed GBS neg, A+, neg ab screen, HIV neg, VDRL and HIV neg and rubella immune and normal 1hrgtt Past History Past Medical History: no pertinent history, other (Anxiety and depression on no meds, maternal obesity and varicella non-immune) Past Surgical History: no surgical history, cholecystectomy (for gall stones in 11/2020 at [facility]) [employer] History: chlamydia (treated this preg), trichomonas (treated this preg) Social history: no significant social history - Obstetrical History Expected Date of Delivery: 06/08/21 Actual Gestation: 37 Week(s) 1 Day(s) : 2 Para: 1 Number of Living Children: 1 Medications and Allergies Allergies Allergy/AdvReac Type Severity Reaction Status Date / Time No Known Allergies Allergy Verified 05/18/21 16:46 Home Medications Medication Instructions Recorded Confirmed Last Taken Type One Daily Tablet 1 tab PO DAILY 05/17/21 05/18/21 05/17/21 09:00 History Active Meds: Active Medications Acetaminophen (Acetaminophen 325 Mg Tab) 650 mg PO Q4H PRN PRN Reason: Pain, Mild (1-3) Butorphanol Tartrate (Butorphanol 2 Mg/1 Ml Inj) 1 mg IV Q2H PRN PRN Reason: Pain, Moderate(4-6) LABOR PAIN Carboprost Tromethamine (Carboprost Tromethamine 250 Mcg/1 Ml Inj) 250 mcg IM ONCE PRN PRN Reason: Uterine Bleeding Citric Acid/Sodium Citrate (Bicitra Oral Liqd 30ml) 30 ml PO ONCE ONE Stop: 05/19/21 18:34 Ephedrine Sulfate (Ephedrine Sulfate 50 Mg/1 Ml Inj) 10 mg IV Q2M PRN PRN Reason: Hypotension Fentanyl (Fentanyl 100 Mcg/2 Ml Inj) 100 mcg IV Q2H PRN PRN Reason: Pain,Severe (7-10) LABOR PAIN Oxytocin/Sodium Chloride (Pitocin/Ns 30 Unit/500ml) 30 units in 500 mls @ 2 mls/hr IV TITR RIVER; Protocol Lactated Ringer's (Lactated Ringers) 1,000 mls @ 125 mls/hr IV DIRECT RIVER Oxytocin/Sodium Chloride (Pitocin/Ns 30 Unit/500ml) 30 units in 500 mls @ 40 mls/hr IV TITR RIVER; Protocol Lidocaine (Lidocaine (2%) 20 Mg/1 Ml Vial 20 Ml Mdv) 20 ml INFILTRATI ONCE ONE Stop: 05/19/21 19:01 Last Admin: 05/19/21 18:33 Dose: 20 ml Documented by: Loperamide HCl (Loperamide 2 Mg Cap) 2 mg PO ONCE PRN PRN Reason: give with Hemabate Methylergonovine Maleate (Methylergonovine Maleate 0.2 Mg/Ml Vial) 0.2 mg IM ONCE PRN PRN Reason: Uterine Bleeding Mineral Oil (Mineral Oil 30 Ml Oral Liqd) 30 ml PO QHS PRN PRN Reason: Constipation Nalbuphine HCl (Nalbuphine 10 Mg/1 Ml Inj) 10 mg IV Q2H PRN PRN Reason: Pain, Moderate (4-6) Naloxone HCl (Naloxone 0.4 Mg/1 Ml Inj) 0.1 mg IV Q2MIN PRN PRN Reason: Res Rate </= 8 or 02 SAT < 92% Oxytocin (Oxytocin 10 Unit/1 Ml Inj) 10 unit IM ONCE PRN PRN Reason: Uterine Bleeding Terbutaline Sulfate (Terbutaline 1 Mg/1 Ml Inj) 0.25 mg SUB-Q ONCE PRN PRN Reason: Hyperstimulation/Hypertonicity Review of Systems All systems: negative (contractions) - Vital Signs Vital signs: Vital Signs Pulse BP 79 133/74 05/19/21 17:47 05/19/21 17:47 Temp Pulse Resp BP Pulse Ox 74 122/68 05/19/21 18:32 05/19/21 18:32 - Physical Exam Breasts: Positive: deferred Cardiovascular: Regular rate Lungs: Positive: Normal air movement Genitourinary (Female): Positive: normal external genitalia Vagina: Positive: normal moisture Uterus: Positive: normal size - Obstetrical FHR: other (none recorded per nurse report) Uterine Contraction Monitor Mode: Palpation Cervical Dilatation: 10 (per labor nurse and ) Cervical Effacement Percentage: 100 station: +3 Uterine Contraction Pattern: Regular Results Result Diagrams: 05/19/21 18:14 05/19/21 18:14 All other labs normal. Assessment and Plan Term preg with precipitous vaginal delivery by Jose A Moncada to bedside. 1. Please see delivery note 2. Admit to labor and delivery and then to 3. Need records and [facility] labs. 4. Will repair the laceration to left labia and give ancef x1 dose 5. Plan of care discussed with patient and nurse to bedside.
[2021-05-19] MEDS ORDERED: ONDANSETRON 4 MG/2 ML INJ IV PRN (18:54)
[2021-05-19] MEDS ORDERED: WITCH HAZEL/ GLYCERIN PAD TP PRN (18:54)
[2021-05-19] MEDS ORDERED: PROMETHAZINE 25 MG RECT SUPP PR PRN (18:54)
[2021-05-19] MEDS ORDERED: MAGNESIUM HYDROXIDE (MOM) ORAL LIQD UDC PO PRN (18:54)
[2021-05-19] MEDS ORDERED: LANOLIN/ZINC/DIMETHICONE (LANSINOH) 7 GM TP PRN (18:54)
[2021-05-19] MEDS ORDERED: diphenhydrAMINE 25 MG CAP PO PRN (18:54)
[2021-05-19] MEDS ORDERED: PROMETHAZINE 25 MG TAB PO PRN (18:54)
[2021-05-19] MEDS ORDERED: ceFAZolin/Water 2 GM/20 ML 2 GM/20 ML SYRINGE IV SCH (18:57)
[2021-05-19] MEDS ORDERED: LIDOCAINE (2%) 20 MG/1 ML VIAL 20 ML MDV INFILTRATI ONE (19:00)
[2021-05-19] MEDS ORDERED: BUTORPHANOL 2 MG/1 ML INJ IV PRN (19:00)
[2021-05-19] MEDS ORDERED: fentaNYL 100 MCG/2 ML INJ IV PRN (19:00)
[2021-05-19] MEDS ORDERED: NALOXONE 0.4 MG/1 ML INJ IV PRN (19:00)
[2021-05-19 19:11] LABS: Alanine Aminotransferase 8 units/L (7-56); Uric Acid 1.9 mg/dL (3.5-7.6)
--- NOTE | 2021-05-19 19:11 | Procedure Note ---
OB Delivery Note - Delivery Date of Delivery: 05/19/21 Surgeon: FELICIA MOORE Estimated blood loss: 200cc - Vaginal Delivery presentation: vertex Delivery position: OA Intrapartum events: precipitous labor- <3hr Delivery induction: none Delivery monitor: none Route of delivery: Delivery placenta: spontaneous (calicified ) Delivery cord: 3 umbilical vessels Delivery laceration: 1st degree (left labia and same repaired with 2-0 chromic running locked suture uncomplicated) Delivery repair: chromic Anesthesia: none Delivery comments: Precipitous vaginal delivery by nurse of viable female . Nuchal cord x1 reduced by nurse and placenta delivered by nurse. I examined the patient post delivery and noted left 1st degree labial laceration and same repaired with 2-0 chromic running locked suture and local anesthetic 1% lidocaine. Placenta also examined and same was very calcified. Cervix also evaluated and no other lacerations seen. Lower uterine segment cleared of 100cc clots and cytotec 800mcg given because pt only received IM pitocin. Bimanual massage done as well. Pt also given ancef 2gm x1 dose and I will try and get her records and await [facility] labs. - Infant A at 1 minute: 9 at 5 minutes: 9 Gender: Female (wt 2540g)
[2021-05-19] MEDS: IBUPROFEN 600 MG TAB PO SCH (19:43)
[2021-05-19] MEDS ORDERED: BICITRA ORAL LIQD 30ML PO ONE (20:00)
[2021-05-19] MEDS: oxyCODONE /ACETAMINOPHEN 5-325MG TAB PO PRN (23:14)
[2021-05-20] MEDS ORDERED: TETANUS,DIPH,PERTUSS(ACELL) VACCINE 0.5 ML SYRINGE IM ONE (06:00)
[2021-05-20] MEDS: IBUPROFEN 600 MG TAB PO SCH ×2 (06:03→18:26)
[2021-05-20 08:05] LABS: Hematocrit 29.8 % (30.3-42.9); Hemoglobin 9.7 gm/dl (10.1-14.3)
--- NOTE | 2021-05-20 18:25 | Progress Note ---
Assessment and Plan A: S/P Asymptomatic anemia P: Continue routine pp care Fe prescribed D/C home tomm if stable Subjective - Subjective Date of service: 05/20/21 (late entry for 8:10am) Principal diagnosis: s/p Patient reports: appetite normal, voiding normally, pain well controlled, ambulating normally : doing well, bottle feeding Objective - Vital Signs Latest vital signs: Vital Signs Temp Pulse Resp BP Pulse Ox Pulse Ox 05/20/21 16:04 98.2 F 84 20 109/63 98 05/20/21 11:35 98.9 F 75 20 111/73 100 05/20/21 08:19 99 05/20/21 07:34 99.0 F 73 20 121/69 100 05/20/21 06:03 18 05/20/21 04:30 98.6 F 68 18 117/68 96 05/20/21 00:32 98.0 F 78 18 112/58 98 05/19/21 23:14 18 05/19/21 20:02 72 128/70 05/19/21 19:47 73 137/72 05/19/21 19:32 76 130/62 05/19/21 19:17 78 149/72 05/19/21 19:02 67 139/64 05/19/21 18:47 76 131/70 05/19/21 18:32 74 122/68 Intake and Output 05/20/21 05/20/21 05/20/21 06:59 14:59 22:59 Intake Total 200 840 Output Total 800 Balance -600 840 Intake: Oral 840 Intake, Free Water 200 Output: Urine 800 Void 800 Other: Total, Intake Amount 480 Total, Output Amount 800 # Voids Void 1 1 - Exam Breasts: Present: normal Abdomen: Present: normal appearance, soft, normal bowel sounds Vulva: both: normal Uterus: Present: normal, firm, fundal height below umbilicus Extremities: Present: normal Incision: Present: normal, intact - Labs Labs: Abnormal lab results 05/19/21 05/19/21 05/20/21 Range/Units 18:14 18:14 07:51 Hgb 9.7 L (10.1-14.3) gm/dl Hct 29.8 L (30.3-42.9) % MCH 26 L (28-32) pg Creatinine 0.3 L (0.6-1.2) mg/dL Uric Acid 1.9 L (3.5-7.6) mg/dL
[2021-05-20] MEDS: FERROUS SULFATE 325 MG TAB PO SCH (18:27)
--- NOTE | 2021-05-20 18:34 | Discharge Summary ---
Providers - Providers Date of Admission: 05/19/21 17:18 Date of discharge: 05/21/21 Attending physician: FELICIA MOORE Primary care physician: FELICIA MOORE Hospitalization Reason for admission: active labor, IUP at term Delivery: Episiotomy: none Laceration: 1st degree Incision: normal, intact Other procedures: none complications: other (asymptomatic anemia) Discharge diagnosis: IUP at term delivered [place] baby: female Hospital course: Pt presented to [facility] in labor and had a w/o pp complications. See H&P, delivery summary, and pp notes. Condition at discharge: Stable Disposition: HOME / SELF CARE / HOMELESS Plan - Discharge Medications Prescriptions: Ferrous Sulfate [Feosol 325 MG tab] 325 mg PO BID #120 tablet Ibuprofen [Motrin 600 MG tab] 600 mg PO Q6H PRN #30 tablet PRN Reason: Menstrual Cramps - Provider Discharge Summary Activity: routine, no sex for 6 weeks, no heavy lifting 4 weeks, no strenuous exercise Diet: routine Instructions: routine Additional instructions: [] Smoking cessation referral if applicable(refer to patient education folder for contact #) [] Refer to [facility]'s [facility] Booklet Call your doctor immediately for: * Fever > 100.5 * Heavy vaginal bleeding ( >1 pad per hour) * Severe persistent headache * Shortness of breath * Reddened, hot, painful area to leg or breast * Drainage or odor from incision. * Keep incision clean and dry at all times and follow doctor's instructions regarding bathing/showering - Follow up plan Follow up: FELICIA MOORE MD [Primary Care Provider] - 6 Weeks
[2021-05-20] MEDS ORDERED: MEASLES, MUMPS & RUBELLA 12,500 UNIT/0.5 ML VACCINE SUB-Q ONE (18:54)
[2021-05-21] MEDS: FERROUS SULFATE 325 MG TAB PO SCH (00:31)
[2021-05-21] MEDS: oxyCODONE /ACETAMINOPHEN 5-325MG TAB PO PRN (00:38)
[2021-05-21] MEDS: IBUPROFEN 600 MG TAB PO SCH (05:50)
[2021-05-21 12:20] VITALS: BP 139/86
== END 2021-05-21 13:00 | disposition home or self-care (01) | DRG 775 ==
LOC: LD 17:17 → TRG 17:17 → LD 17:18 → APU 17:19 → TRG 17:54 → OB 20:26
PROVIDERS: ADMIT Obstetrics & Gynecology; ATTEND Obstetrics & Gynecology
PROC: 10E0XZZ Delivery of Products of Conception, External Approach (ICD-10-PCS; principal; 2021-05-19)
PROC: 0HQ9XZZ Repair Perineum Skin, External Approach (ICD-10-PCS; 2021-05-19)
PROC: 3E0234Z Introduction of Serum, Toxoid and Vaccine into Muscle, Percutaneous Approach (ICD-10-PCS; 2021-05-20)
PROC: 3E0134Z Introduction of Serum, Toxoid and Vaccine into Subcutaneous Tissue, Percutaneous Approach (ICD-10-PCS; 2021-05-20)
DX: O62.3 Precipitate labor (principal); O70.0 First degree perineal laceration during delivery; Z3A.37 37 weeks gestation of pregnancy; Z37.0 Single live birth; Z23 Encounter for immunization; Z20.822 Contact with and (suspected) exposure to COVID-19; Z90.49 Acquired absence of other specified parts of digestive tract; O90.81 Anemia of the puerperium
CPT/HCPCS: 36415; 59025; 81001; 82565; 83615; 84450; 84460; 84550; 85014; 85018; 85027; 86592; 86850; 86900; 86901; 90715; G0378; J0690; J2590; U0003

== ENCOUNTER 2022-04-24 14:52 | Emergency (ER) | payer MEDICAID ==
--- NOTE | 2022-04-24 15:02 | Emergency Department Report ---
Blank Doc - Documentation Documentation: 26-year-old female that presents with nausea vomiting. Patient stated she is about 7 weeks . 1- This is a initial triage assessment/medical screening only. Full assessment and work-up will be completed once the patient is in proper hospital gown, ED bed and in a private room setting. This initial assessment/diagnostic orders/clinical plan/ treatment(s) is/are subject to change based on pt's health status, clinical progression and re-assessment by fellow clinical providers in the ED. Further treatment and workup at subsequent clinical providers discretion. Patient/guardians urged not to elope from ED as their condition may be serious if not clinically assessed and managed. 2-labs The patient was evaluated in the emergency department for symptoms described in the history of present illness. He/she was evaluated in the context of the global COVID-19 pandemic, which necessitated consideration that the patient might be at risk for infection with the virus that causes COVID-19. Institutional protocols and algorithms that pertain to the evaluation of p atients at risk for COVID-19 are in a state of rapid change based on information released by regulatory bodies including the CDC and federal and state organizations. These policies and algorithms were followed during the patient's care in the emergency department. Please note that these policies, procedures and recommendations changed on a rapid basis.
[2022-04-24 15:39] LABS: Basophils % (Auto) 0.6 % (0.0-1.8); Eosinophils % (Auto) 0.4 % (0.0-4.3); Hematocrit 39.8 % (30.3-42.9); Lymphocytes # (Auto) 0.9 K/mm3 (1.2-5.4); Lymphocytes % (Auto) 13.5 % (13.4-35.0); Mean Corpuscular HGB Conc 35 % (30-34); Mean Corpuscular Volume 87 fl (79-97); Monocytes # (Auto) 0.6 K/mm3 (0.0-0.8); Monocytes % (Auto) 8.2 % (0.0-7.3); Platelet Count 407 K/mm3 (140-440); Red Blood Count 4.59 M/mm3 (3.65-5.03); Red Cell Distribution Width 15.5 % (13.2-15.2)
[2022-04-24 15:50] LABS: Alanine Aminotransferase 13 units/L (7-56); Albumin 4.9 g/dL (3.9-5); Blood Urea Nitrogen 9 mg/dL (7-17); Calcium 10.1 mg/dL (8.4-10.2); Hemolysis Index 7
[2022-04-24 15:52] LABS: BUN/Creatinine Ratio 18
[2022-04-24] MEDS ORDERED: SODIUM CHLORIDE 0.9% 1000 ML 1,000 ML IV ONE (17:27)
[2022-04-24] MEDS ORDERED: diphenhydrAMINE 50 MG/ML VIAL IV ONE (17:27)
[2022-04-24] MEDS ORDERED: ONDANSETRON 4 MG/2 ML INJ IV ONE (17:27)
[2022-04-24] MEDS ORDERED: METOCLOPRAMIDE 10 MG/2 ML INJ IV ONE (17:27)
[2022-04-24] MEDS ORDERED: POTASSIUM CHLORIDE ER 20 MEQ TAB PO ONE (18:24)
--- NOTE | 2022-04-24 19:34 | Emergency Department Report ---
ED N/V/D HPI - General Chief complaint: Nausea/Vomiting/Diarrhea Stated complaint: 7WKS /VOMITING/WEAK Time Seen by Provider: 04/24/22 15:01 Source: patient Mode of arrival: Ambulatory Limitations: No Limitations - History of Present Illness Initial comments: 26-year-old black female with no past medical history presents to the emergency department for evaluation of 2-week history of persistent nausea vomiting and intermittent abdominal cramping. Patient is at 7 weeks 4 days gestation per her [employer]. She has been following with her [employer] and has an ultrasound to confirm IUP but states that she has had persistent nausea vomiting unrelieved by Zofran and Phenergan at home. Patient states that with her last she was diagnosed with hyperemesis gravidarum. She denies fever, dysuria, diarrhea, and vaginal discharge. MD complaint: nausea, vomiting, abdominal pain -: Gradual, week(s) (2) Associated Abdominal Pain: Yes Location: diffuse Radiation: none Severity: mild, moderate Pain Scale: 2 Quality: cramping Consistency: intermittent Associated Symptoms: nausea/vomiting. denies: myalgias, diaphoresis, fever/chills, headaches, dysuria, shortness of breath - Related Data Home Medications Medication Instructions Recorded Confirmed Last Taken One Daily Tablet 1 tab PO DAILY 05/17/21 05/21/21 05/17/21 09:00 Previous Rx's Medication Instructions Recorded Last Taken Type Ferrous Sulfate [Feosol 325 MG tab] 325 mg PO BID #120 tablet 05/20/21 Unknown Rx Ibuprofen [Motrin 600 MG tab] 600 mg PO Q6H PRN #30 tablet 05/20/21 Unknown Rx Metoclopramide [Reglan] 10 mg PO TID PRN #30 tab 04/24/22 Unknown Rx diphenhydrAMINE [Benadryl CAP] 25 mg PO Q8HR PRN #30 capsule 04/24/22 Unknown Rx Allergies Allergy/AdvReac Type Severity Reaction Status Date / Time No Known Allergies Allergy Verified 05/18/21 16:46 ED Review of Systems ROS: Stated complaint: 7WKS /VOMITING/WEAK Other details as noted in HPI Comment: All other systems reviewed and negative Constitutional: denies: chills, fever, malaise, weakness Eyes: denies: vision change ENT: denies: congestion Respiratory: denies: cough, shortness of breath, SOB with exertion, SOB at rest, stridor, wheezing Cardiovascular: denies: chest pain, palpitations, dyspnea on exertion, orthopnea, edema, syncope, paroxysmal nocturnal dyspnea Gastrointestinal: abdominal pain, nausea, vomiting. denies: diarrhea, hematemesis, melena, hematochezia Genitourinary: denies: urgency, dysuria, frequency, hematuria, discharge Musculoskeletal: denies: back pain Skin: denies: rash, lesions Neurological: denies: headache, weakness Psychiatric: denies: anxiety, depression ED Past Medical Hx - Past Medical History Hx Hypertension: No Hx Congestive Heart Failure: No Hx Diabetes: No Hx Deep Vein Thrombosis: No Hx Renal Disease: No Hx Sickle Cell Disease: No Hx Headaches / Migraines: No Hx Seizures: No Hx Psychiatric Treatment: Yes (anxiety) Hx Asthma: (does not take anything for asthma. diagnosed as a child.) Hx COPD: No Hx HIV: No - Surgical History Hx Appendectomy: No Additional Surgical History: csection - Social History Smoking Status: Never Smoker - Medications Home Medications: Home Medications Medication Instructions Recorded Confirmed Last Taken Type One Daily Tablet 1 tab PO DAILY 05/17/21 05/21/21 05/17/21 09:00 History Ferrous Sulfate [Feosol 325 MG tab] 325 mg PO BID #120 tablet 05/20/21 Unknown Rx Ibuprofen [Motrin 600 MG tab] 600 mg PO Q6H PRN #30 tablet 05/20/21 Unknown Rx Metoclopramide [Reglan] 10 mg PO TID PRN #30 tab 04/24/22 Unknown Rx diphenhydrAMINE [Benadryl CAP] 25 mg PO Q8HR PRN #30 capsule 04/24/22 Unknown Rx ED Physical Exam - General Limitations: No Limitations General appearance: alert, in no apparent distress - Head Head exam: Present: atraumatic, normocephalic - Eye Eye exam: Present: normal appearance. Absent: scleral icterus, nystagmus, periorbital swelling, periorbital tenderness - ENT ENT exam: Present: normal exam - Neck Neck exam: Present: normal inspection, full ROM. Absent: tenderness, lymphadenopathy - Respiratory Respiratory exam: Present: normal lung sounds bilaterally. Absent: respiratory distress, wheezes, rales, rhonchi, stridor, chest wall tenderness - Cardiovascular Cardiovascular Exam: Present: regular rate, normal heart sounds - GI/Abdominal GI/Abdominal exam: Present: soft, normal bowel sounds. Absent: distended, tenderness, guarding, rebound, rigid - Extremities Exam Extremities exam: Present: normal inspection, normal capillary refill. Absent: pedal edema, joint swelling, calf tenderness - Back Exam Back exam: Present: normal inspection. Absent: CVA tenderness (R), CVA tenderness (L), vertebral tenderness - Neurological Exam Neurological exam: Present: alert, oriented X3, CN II-XII intact, normal gait, reflexes normal. Absent: motor sensory deficit - Psychiatric Psychiatric exam: Present: normal affect, normal mood - Skin Skin exam: Present: warm, dry, intact, normal color ED Course Vital Signs 04/24/22 15:01 Temperature 99.0 F Pulse Rate 84 Respiratory 14 Rate Blood Pressure 141/87 O2 Sat by Pulse 100 Oximetry - Reevaluation(s) Reevaluation #1: 04/24/22 19:33 Patient states that nausea vomiting is resolved and she feels much better. She denies any abdominal cramping. ED Medical Decision Making - Lab Data Result diagrams: 04/24/22 15:18 04/24/22 15:18 - Medical Decision Making 26-year-old black female with no past medical history presents to the emergency department for evaluation of 2-week history of persistent nausea vomiting and intermittent abdominal cramping. Patient is at 7 weeks 4 days gestation per her [employer]. She has been following with her [employer] and has an ultrasound to confirm IUP but states that she has had persistent nausea vomiting unrelieved by Zofran and Phenergan at home. Patient states that with her last she was diagnosed with hyperemesis gravidarum. She denies fever, dysuria, diarrhea, and vaginal discharge. Patient noted to be slightly hypokalemic. Symptoms resolved after Reglan, Benadryl, and IV fluids. Patient treated with 40 mEq of potassium chloride p.o. x1. She is advised to continue intact Lasix as previously prescribed and will be discharged home with prescription for Benadryl and Reglan to use as needed for nausea vomiting. She is advised to follow-up with her [employer] on Monday as previously planned. She is advised to return to the emergency department if no improvement or worsening symptoms. She verbalizes understanding of and agreement with plan of care. Critical care attestation.: If time is entered above; I have spent that time in minutes in the direct care of this critically ill patient, excluding procedure time. ED Disposition Clinical Impression: Nausea and vomiting during , Hypokalemia Disposition: HOME / SELF CARE / HOMELESS Is pt being admited?: No Does the pt Need Aspirin: No Condition: Stable Instructions: Hyperemesis Gravidarum, Morning Sickness, [id number], Potassium Content of Foods, Hypokalemia Additional Instructions: Continue take Diclegis as previously prescribed. Take medications as prescribed. Increase intake of noncaffeinated fluids. Follow-up with your [employer] on Monday as previously prescribed. Return to the emergency department as needed. Prescriptions: diphenhydrAMINE [Benadryl CAP] 25 mg PO Q8HR PRN #30 capsule PRN Reason: Nausea And Vomiting Metoclopramide [Reglan] 10 mg PO TID PRN #30 tab PRN Reason: Nausea And Vomiting Referrals: [facility] [Provider Group] - 3-5 Days Forms: Work/School Release Form(ED) Time of Disposition: 19:40
[2022-04-24] MEDS ORDERED: POTASSIUM CHLORIDE 20 MEQ PACKET FEEDTUBE ONE (20:00)
[2022-04-24 20:25] VITALS: BP 138/89
== END 2022-04-24 20:26 | disposition home or self-care (01) ==
LOC: ED 14:52
DX: O21.8 Other vomiting complicating pregnancy (principal); E87.6 Hypokalemia; Z13.30 Encounter for screening examination for mental health and behavioral disorders, unspecified; Z3A.01 Less than 8 weeks gestation of pregnancy
CPT/HCPCS: 36415; 80053; 83735; 84702; 85025; 96361; 96374; 96375; 99283; J1200; J2405; J2765; J7030

== ENCOUNTER 2022-04-28 19:17 | Inpatient (IN) | payer MEDICAID ==
[2022-04-28 21:44] LABS: Basophils % (Auto) 0.4 % (0.0-1.8); Eosinophils % (Auto) 0.3 % (0.0-4.3); Hematocrit 44.7 % (30.3-42.9); Hemoglobin 15.1 gm/dl (10.1-14.3); Lymphocytes # (Auto) 1.4 K/mm3 (1.2-5.4); Mean Corpuscular HGB Conc 34 % (30-34); Mean Corpuscular Volume 86 fl (79-97); Monocytes # (Auto) 0.8 K/mm3 (0.0-0.8); Monocytes % (Auto) 10.7 % (0.0-7.3); Platelet Count 445 K/mm3 (140-440); Red Blood Count 5.21 M/mm3 (3.65-5.03); Red Cell Distribution Width 14.7 % (13.2-15.2)
[2022-04-28 22:03] LABS: Alanine Aminotransferase 27 units/L (7-56); Albumin 4.7 g/dL (3.9-5); Blood Urea Nitrogen 10 mg/dL (7-17); Calcium 10.2 mg/dL (8.4-10.2); Hemolysis Index 10
[2022-04-28 22:06] LABS: BUN/Creatinine Ratio 14
--- NOTE | 2022-04-29 02:06 | Emergency Department Report ---
ED N/V/D HPI - General Chief complaint: Nausea/Vomiting/Diarrhea Stated complaint: 8WEEKS PREG DEHYDRATED AND WEAK/SOB Time Seen by Provider: 04/29/22 02:01 Source: patient Mode of arrival: Ambulatory Limitations: No Limitations - History of Present Illness Initial comments: 26-year-old female G3, P2 at 8 weeks gestation with recent diagnosis of hyperem esis gravidarum who now presents with nausea and vomiting that has been going on for more than 6 weeks progressively getting worse. No fever or chills reported. Patient says for the last 3 weeks she has not been able to keep anything down. 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 She reported that she did have the same problem with 2 previous p regnancies. No other modifying or associated factors reported. - Related Data Home Medications Medication Instructions Recorded Confirmed Last Taken One Daily Tablet 1 tab PO DAILY 05/17/21 05/21/21 05/17/21 09:00 Previous Rx's Medication Instructions Recorded Last Taken Type Ferrous Sulfate [Feosol 325 MG tab] 325 mg PO BID #120 tablet 05/20/21 Unknown Rx Ibuprofen [Motrin 600 MG tab] 600 mg PO Q6H PRN #30 tablet 05/20/21 Unknown Rx Metoclopramide [Reglan] 10 mg PO TID PRN #30 tab 04/24/22 Unknown Rx diphenhydrAMINE [Benadryl CAP] 25 mg PO Q8HR PRN #30 capsule 04/24/22 Unknown Rx Allergies Allergy/AdvReac Type Severity Reaction Status Date / Time No Known Allergies Allergy Verified 05/18/21 16:46 ED Review of Systems ROS: Stated complaint: 8WEEKS PREG DEHYDRATED AND WEAK/SOB Other details as noted in HPI Comment: All other systems reviewed and negative Constitutional: weakness. denies: fever, malaise Gastrointestinal: nausea, vomiting. denies: constipation ED Past Medical Hx - Past Medical History Previous Medical History?: Yes Hx Hypertension: No Hx Congestive Heart Failure: No Hx Diabetes: No Hx Deep Vein Thrombosis: No Hx Renal Disease: No Hx Sickle Cell Disease: No Hx Headaches / Migraines: No Hx Seizures: No Hx Psychiatric Treatment: Yes (anxiety) Hx Asthma: (does not take anything for asthma. diagnosed as a child.) Hx COPD: No Hx HIV: No - Surgical History Hx Appendectomy: No Additional Surgical History: csection - Social History Smoking Status: Unknown if ever smoked - Medications Home Medications: Home Medications Medication Instructions Recorded Confirmed Last Taken Type One Daily Tablet 1 tab PO DAILY 05/17/21 05/21/21 05/17/21 09:00 History Ferrous Sulfate [Feosol 325 MG tab] 325 mg PO BID #120 tablet 05/20/21 Unknown Rx Ibuprofen [Motrin 600 MG tab] 600 mg PO Q6H PRN #30 tablet 05/20/21 Unknown Rx Metoclopramide [Reglan] 10 mg PO TID PRN #30 tab 04/24/22 Unknown Rx diphenhydrAMINE [Benadryl CAP] 25 mg PO Q8HR PRN #30 capsule 04/24/22 Unknown Rx ED Physical Exam - General Limitations: No Limitations General appearance: alert, in no apparent distress - Head Head exam: Present: normal inspection - Eye Eye exam: Present: normal appearance Pupils: Present: normal accommodation - ENT ENT exam: Present: mucous membranes dry - Neck Neck exam: Present: normal inspection, full ROM. Absent: tenderness - Respiratory Respiratory exam: Present: normal lung sounds bilaterally. Absent: respiratory distress, wheezes, accessory muscle use - Cardiovascular Cardiovascular Exam: Present: regular rate, normal rhythm, normal heart sounds - GI/Abdominal GI/Abdominal exam: Present: soft, normal bowel sounds, other. Absent: distended, tenderness - Extremities Exam Extremities exam: Present: normal inspection, normal capillary refill. Absent: pedal edema - Back Exam Back exam: Present: normal inspection - Neurological Exam Neurological exam: Present: alert, oriented X3 - Psychiatric Psychiatric exam: Present: normal affect, normal mood ED Course Vital Signs 04/28/22 04/29/22 04/29/22 20:58 00:29 00:30 Temperature 98.7 F Pulse Rate 98 H 91 H 101 H Respiratory 18 26 H 27 H Rate Blood Pressure 130/88 Blood Pressure 126/81 [Right] O2 Sat by Pulse 99 100 100 Oximetry 04/29/22 04/29/22 04/29/22 00:40 00:43 01:01 Temperature Pulse Rate 101 H 82 Respiratory 19 25 H Rate Blood Pressure 131/88 Blood Pressure 130/88 [Right] O2 Sat by Pulse 100 100 100 Oximetry 04/29/22 04/29/22 04/29/22 01:31 02:01 02:31 Temperature Pulse Rate 94 H 89 94 H Respiratory 14 18 20 Rate Blood Pressure 128/86 125/86 135/85 Blood Pressure [Right] O2 Sat by Pulse 100 100 100 Oximetry 04/29/22 04/29/22 03:01 03:31 Temperature Pulse Rate 94 H 82 Respiratory 12 15 Rate Blood Pressure 124/85 132/81 Blood Pressure [Right] O2 Sat by Pulse 100 99 Oximetry ED Medical Decision Making - Lab Data Result diagrams: 04/28/22 21:26 04/28/22 21:26 - EKG Data -: EKG Interpreted by Ma EKG shows normal: sinus rhythm Rate: normal - EKG Data 04/29/22 05:46 Noted with normal sinus rhythm at a rate of 91 bpm with left atrial enlargement and prolonged QT in this abnormal ECG. - Medical Decision Making Here with nausea and vomiting with recent diagnosis of hyperemesis gravidarum in this 3 para 2 at 8 weeks gestation--we will go ahead and start IV hydration with normal saline 1 L bolus x1 and order routine labs including CBC and CMP with UA to rule out any infectious process, or electrolyte abnormality--in the meantime we will go ahead and give Zofran 4 mg IV x1 for symptomatic relief Lab reviewed and noted with severe hypokalemia at 2.6 and given Potassium 20 mEq PO x 1-- and IVPB 20 mEq x 1-- will administer slowly with ivf ns hydration will consider admission-- Dr Rubio consulted who accept pt for further evaluation and treatment -- Critical care attestation.: If time is entered above; I have spent that time in minutes in the direct care of this critically ill patient, excluding procedure time. ED Disposition Clinical Impression: Hyperemesis gravidarum Qualifiers: Weeks of gestation: 8 weeks Qualified Code(s): Z3A.08 - 8 weeks gestation of Nausea and vomiting Qualifiers: Vomiting type: unspecified Qualified Code(s): R11.2 - Nausea with vomiting, unspecified Disposition: ADMITTED INPATIENT Is pt being admited?: Yes Does the pt Need Aspirin: No Condition: Stable Referrals: IMTIAZ YEH MD [Primary Care Provider] - 3-5 Days Time of Disposition: 05:43
[2022-04-29] MEDS ORDERED: SODIUM CHLORIDE 0.9% 1000 ML 1,000 ML IV ONE (02:07)
[2022-04-29] MEDS ORDERED: ONDANSETRON 4 MG/2 ML INJ IV ONE (02:07)
[2022-04-29] MEDS ORDERED: POTASSIUM CHLORIDE ER 20 MEQ TAB PO ONE (03:44)
[2022-04-29] MEDS ORDERED: chlorproMAZINE 50 MG/2 ML INJ IV PRN (07:19)
--- NOTE | 2022-04-29 07:24 | History and Physical Report ---
History of Present Illness Date of examination: 04/29/22 Date of admission: 04/29/2022 Chief complaint: Unable to keep food or water down over the past 3 weeks History of present illness: The patient is a 26-year-old at approximately 8 weeks gestation who pr esents to the main emergency department reporting nausea/vomiting and inability keep any food or water down over the past 3 weeks. There is no vaginal bleeding. There is no leaking of fluid. The are no contractions. At home, the patient has tried oral Zofran, oral Reglan, and rectal Phenergan to attempt to ameliorate her symptoms. However, this regimen did not improve her nausea/vomiting. In OB triage, moderate hypokalemia was noted. The patient is admitted to the mother-baby unit for further evaluation and management of hyperemesis gravidarum. Past History Past Medical History: no pertinent history Past Surgical History: cholecystectomy Family/Genetic History: diabetes, hypertension Social history: no significant social history - Obstetrical History : 3 Para: 2 Hx # Term Pregnancies: 2 Number of Living Children: 2 Medications and Allergies Allergies Allergy/AdvReac Type Severity Reaction Status Date / Time No Known Allergies Allergy Verified 05/18/21 16:46 Home Medications Medication Instructions Recorded Confirmed Last Taken Type One Daily Tablet 1 tab PO DAILY 05/17/21 05/21/21 05/17/21 09:00 History Ferrous Sulfate [Feosol 325 MG tab] 325 mg PO BID #120 tablet 05/20/21 Unknown Rx Ibuprofen [Motrin 600 MG tab] 600 mg PO Q6H PRN #30 tablet 05/20/21 Unknown Rx Metoclopramide [Reglan] 10 mg PO TID PRN #30 tab 04/24/22 Unknown Rx diphenhydrAMINE [Benadryl CAP] 25 mg PO Q8HR PRN #30 capsule 04/24/22 Unknown Rx Active Meds: Active Medications Acetaminophen (Acetaminophen 325 Mg Tab) 650 mg PO Q4H PRN PRN Reason: Pain MILD(1-3)/Fever >100.5/SRINIVASAN Chlorpromazine HCl (Chlorpromazine 50 Mg/2 Ml Inj) 50 mg IV Q4H PRN PRN Reason: Nausea And Vomiting Thiamine HCl 100 mg/ Folic Acid 1 mg/ Multivitamins/Minerals 10 ml/ Sodium Chloride 1,011.2 mls @ 250 mls/hr IV ONCE ONE Stop: 04/29/22 12:02 Potassium Chloride/Dextrose/Sod Cl (D5w/Ns W/Kcl 20meq) 20 meq in 1,000 mls @ 150 mls/hr IV DIRECT RIVER Potassium Chloride (Kcl 10meq/100ml) 10 meq in 100 mls @ 100 mls/hr IV Q1H RIVER Stop: 04/29/22 12:59 Metoclopramide HCl (Metoclopramide 10 Mg/2 Ml Inj) 10 mg IV Q8H R[facility] Ondansetron HCl (Ondansetron 4 Mg/2 Ml Inj) 8 mg IV Q8H RIVER Review of Systems All systems: negative Gastrointestinal: nausea, vomiting - Vital Signs Vital signs: Vital Signs Temp Pulse Resp BP Pulse Ox 98.7 F 98 H 18 126/81 99 04/28/22 20:58 04/28/22 20:58 04/28/22 20:58 04/28/22 20:58 04/28/22 20:58 Temp Pulse Resp BP Pulse Ox 98.7 F 79 25 H 127/91 100 04/28/22 20:58 04/29/22 06:01 04/29/22 06:01 04/29/22 06:01 04/29/22 06:01 - Physical Exam Breasts: Positive: normal Cardiovascular: Regular rate Lungs: Positive: Normal air movement Abdomen: Positive: normal appearance Genitourinary (Female): Positive: normal external genitalia, normal perenium Vulva: both: normal Vagina: Positive: normal moisture Uterus: Positive: normal size, normal contour Adnexa: both: normal Anus/Rectum: Positive: normal perianal skin Extremities: Positive: normal Deep Tendon Reflex Grade: Normal +2 Results Result Diagrams: 04/28/22 21:26 04/28/22 21:26 Abnormal lab results 04/28/22 04/28/22 Range/Units 21:26 21:26 RBC 5.21 H (3.65-5.03) M/mm3 Hgb 15.1 H (10.1-14.3) gm/dl Hct 44.7 H (30.3-42.9) % Plt Count 445 H (140-440) K/mm3 [place] % (Auto) 10.7 H (0.0-7.3) % Sodium 133 L (137-145) mmol/L Potassium 2.8 L* (3.6-5.0) mmol/L Chloride 92.0 L (98-107) mmol/L Carbon Dioxide 17 L (22-30) mmol/L Glucose 117 H (65-100) mg/dL Total Bilirubin 2.10 H (0.1-1.2) mg/dL Total Protein 8.4 H (6.3-8.2) g/dL All other labs normal. Ultrasound: report reviewed, image reviewed Assessment and Plan - Patient Problems (1) Hyperemesis arising during Onset Date: 04/21/14 Current Visit: Yes Status: Chronic Plan to address problem: The patient is tried oral Zofran, oral Reglan, and rectal Phenergan at home without successful amelioration of her symptoms. I recommend admission to the hospital for further evaluation, management, t reatment of hyperemesis gravidarum. Scheduled IV Zofran and scheduled IV Reglan will be administered, along with IV chlorpromazine as needed. If this does not ameliorate the patient symptoms, then consider short burst of steroids. Aggressive IV hydration will be ordered. (2) Hypokalemia Onset Date: 04/21/14 Current Visit: No Status: Acute Plan to address problem: The potassium level is 2.8. Replace IV potassium. Reinspect kidney tomorrow morning and evaluate patient for possible discharge home.
[2022-04-29] MEDS ORDERED: ACETAMINOPHEN 325 MG TAB PO PRN (07:30)
[2022-04-29] MEDS ORDERED: D5W/0.9% NACL 1,000 ML IV SCH (08:00)
[2022-04-29] MEDS ORDERED: THIAMINE 100 MG, FOLIC ACID 1 MG, MULTIPLE VITAMIN INJ, ADULT 10 ML in SODIUM CHLORIDE ... IV ONE (08:00)
[2022-04-29] MEDS: POTASSIUM CHLORIDE 10 MEQ 10 MEQ/100 ML BAG IV SCH ×5 (08:27→21:07)
--- NOTE | 2022-04-29 08:50 | Ultrasound Report ---
ULTRASOUND OBSTETRIC INDICATION / CLINICAL INFORMATION: Hyperemesis gravidarum. Clinical Gestational Age (GA) in weeks, days: 8, 3 TECHNIQUE: Transabdominal. COMPARISON: None available. FINDINGS: GESTATIONAL SAC: Well-defined oval shape and intrauterine in location. YOLK SAC: No significant abnormality. EMBRYO/FETUS: No significant abnormality. - [place]-Rump Length = 1.8 cm = 8, 2 weeks, days - Heart Rate, beats per minute (if present) = 174 ADNEXA: No significant abnormality. FREE FLUID: None. ADDITIONAL FINDINGS: None. IMPRESSION: 1. Single, living intrauterine with estimated sonographic age of 8, 2 weeks, days. Signer Name: Akshat Cid DO Signed: 04/29/2022 8:45 AM Workstation Name: [id number]
[2022-04-29] MEDS ORDERED: chlorproMAZINE 50 MG in SODIUM CHLORIDE 0.9% 50 ML IV PRN (09:00)
[2022-04-29] MEDS: METOCLOPRAMIDE 10 MG/2 ML INJ IV SCH ×3 (10:57→23:51)
[2022-04-29] MEDS: ONDANSETRON 4 MG/2 ML INJ IV SCH ×3 (10:57→23:50)
--- NOTE | 2022-04-29 11:18 | Electrocardiograph Report ---
[facility] Test Date: 2022-04-29 Test Time: 00:36:08 Pat Name: BETTY CORTES Department: Room: 2102 1 Gender: F Preschool Assistant Director: ESMER [place] : 1995 Requested By: CAMILLE CALDWELL Order Number: [id number] Reading MD: Natan Valdez Measurements Intervals [place] Rate: 91 P: 37 MS: 150 QRS: 54 QRSD: 83 T: 44 QT: 465 QTc: 574 Interpretive Statements Sinus rhythm Probable left atrial enlargement Prolonged QT interval No previous ECG available for comparison Electronically Signed On 04-29-2022 11:18:29 EDT by Natan Valdez
--- NOTE | 2022-04-29 13:39 | Consultation ---
History of Present Illness Consult date: 04/29/22 Requesting physician: FELICIA MOORE History of present illness: Ms. Porter is a 26 y/o now 8 weeks presented with hyperemesis N/V worsening over last 6 weeks - now 170# " I think I've last 12# " Now feeling a little better able to keep some fluids down Hypokalemia - K replacement Now on Zofran Reglan ------ H/O Hyperemesis with prior 2 pregnancies Never on Zofran Pump ------ OB History 2014 V/T/F 62020 V/T/F " Hyperemesis X 2 --------- Surgery 2020 GB at 14 weeks preg No med ds No STD No C/D/D NKA Past History Past Medical History: no pertinent history Past Surgical History: cholecystectomy Family/Genetic History: diabetes, hypertension - Obstetrical History : 3 Medications and Allergies Allergies Allergy/AdvReac Type Severity Reaction Status Date / Time No Known Allergies Allergy Verified 05/18/21 16:46 Home Medications Medication Instructions Recorded Confirmed Last Taken Type One Daily Tablet 1 tab PO DAILY 05/17/21 04/29/22 05/17/21 09:00 History Ferrous Sulfate [Feosol 325 MG tab] 325 mg PO BID #120 tablet 05/20/21 04/29/22 Unknown Rx Ibuprofen [Motrin 600 MG tab] 600 mg PO Q6H PRN #30 tablet 05/20/21 04/29/22 Unknown Rx Metoclopramide [Reglan] 10 mg PO TID PRN #30 tab 04/24/22 04/29/22 Unknown Rx diphenhydrAMINE [Benadryl CAP] 25 mg PO Q8HR PRN #30 capsule 04/24/22 04/29/22 Unknown Rx Active Meds: Active Medications Potassium Chloride/Dextrose/Sod Cl (D5w/Ns W/Kcl 20meq) 20 meq in 1,000 mls @ 150 mls/hr IV DIRECT RIVER Chlorpromazine HCl 50 mg/ (Sodium Chloride) 52 mls @ 100 mls/hr IV Q4H PRN PRN Reason: Nausea And Vomiting Metoclopramide HCl (Metoclopramide 10 Mg/2 Ml Inj) 10 mg IV Q8H [facility] Last Admin: 04/29/22 10:57 Dose: 10 mg Ondansetron HCl (Ondansetron 4 Mg/2 Ml Inj) 8 mg IV Q8H [facility] Last Admin: 04/29/22 10:57 Dose: 8 mg - Vital Signs Vital signs: Vital Signs Temp Pulse Resp BP Pulse Ox 98.7 F 98 H 18 126/81 99 04/28/22 20:58 04/28/22 20:58 04/28/22 20:58 04/28/22 20:58 04/28/22 20:58 Temp Pulse Resp BP Pulse Ox 98.4 F 78 20 130/80 98 04/29/22 11:24 04/29/22 11:24 04/29/22 11:24 04/29/22 11:24 04/29/22 12:02 Results Result Diagrams: 04/28/22 21:26 04/28/22 21:26 Abnormal lab results 04/28/22 04/28/22 Range/Units 21:26 21:26 RBC 5.21 H (3.65-5.03) M/mm3 Hgb 15.1 H (10.1-14.3) gm/dl Hct 44.7 H (30.3-42.9) % Plt Count 445 H (140-440) K/mm3 [place] % (Auto) 10.7 H (0.0-7.3) % Sodium 133 L (137-145) mmol/L Potassium 2.8 L* (3.6-5.0) mmol/L Chloride 92.0 L (98-107) mmol/L Carbon Dioxide 17 L (22-30) mmol/L Glucose 117 H (65-100) mg/dL Total Bilirubin 2.10 H (0.1-1.2) mg/dL Total Protein 8.4 H (6.3-8.2) g/dL All other labs normal. Assessment and Plan Impression 1. Barker IUP at 8 3/7 weeks 2. Hyperemesis 3. H/O Hyperemesis with prior 2 pregnancies 4. H/O Cho Recommendations 1. K replacement 2. IV hydration 3. Advance diet as paola 4. Recommend consult with [facility] for Zofran Pump 5. Nutritional/Dietary consult 6. FU with [facility] in 2 to 3 weeks once discharged 7. May consider steroids after 10 weeks if not reponding to Zofran pump
--- NOTE | 2022-04-29 18:28 | Progress Note ---
Assessment and Plan A: HD#1 IUP 8.3wks Hyperemesis and history of hyperemesis K+ infusion Banana bag infusing P: PO challenge as tolerated Zofran pump prior to discharge F/U OB and [facility] after discharge Subjective - Subjective Date of service: 04/29/22 Principal diagnosis: Hyperemesis Interval history: History of hyperemesis with previous 2 pregnancies Patient reports: other ("I only vomitted once today" "I feel tired and hungry") Objective - Vital Signs Vital Signs: Vital Signs - 12hr 04/29/22 04/29/22 04/29/22 07:01 09:30 11:24 Temperature 98.8 F 98.4 F Pulse Rate 74 78 78 Respiratory 12 18 20 Rate Blood Pressure 122/79 130/80 Blood Pressure 119/85 [Right] O2 Sat by Pulse 100 98 98 Oximetry 04/29/22 12:02 Temperature Pulse Rate Respiratory Rate Blood Pressure Blood Pressure [Right] O2 Sat by Pulse 98 Oximetry - Exam Breasts: deferred Cardiovascular: Regular rate Lungs: Clear to auscultation Abdomen: Present: soft Extremities: normal - Labs Labs: Abnormal Labs 04/28/22 04/28/22 21:26 21:26 RBC 5.21 H Hgb 15.1 H Hct 44.7 H Plt Count 445 H [place] % (Auto) 10.7 H Sodium 133 L Potassium 2.8 L* Chloride 92.0 L Carbon Dioxide 17 L Glucose 117 H Total Bilirubin 2.10 H Total Protein 8.4 H Laboratory Results - last 24 hr 04/28/22 04/28/22 04/28/22 21:26 21:26 21:26 WBC 7.4 RBC 5.21 H Hgb 15.1 H Hct 44.7 H MCV 86 MCH 29 MCHC 34 RDW 14.7 Plt Count 445 H Lymph % (Auto) 19.0 [place] % (Auto) 10.7 H Eos % (Auto) 0.3 Baso % (Auto) 0.4 Lymph # (Auto) 1.4 [place] # (Auto) 0.8 Eos # (Auto) 0.0 Baso # (Auto) 0.0 Seg Neutrophils % 69.6 Seg Neutrophils # 5.2 Sodium 133 L Potassium 2.8 L* Chloride 92.0 L Carbon Dioxide 17 L Anion Gap 27 BUN 10 Creatinine 0.7 Estimated GFR > 60 BUN/Creatinine Ratio 14 Glucose 117 H Calcium 10.2 Total Bilirubin 2.10 H AST 20 ALT 27 Alkaline Phosphatase 75 Total Protein 8.4 H Albumin 4.7 Albumin/Globulin Ratio 1.3 Amylase 115 Lipase 14 SARS-CoV-2 (PCR) 04/29/22 09:30 WBC RBC Hgb Hct MCV MCH MCHC RDW Plt Count Lymph % (Auto) [place] % (Auto) Eos % (Auto) Baso % (Auto) Lymph # (Auto) [place] # (Auto) Eos # (Auto) Baso # (Auto) Seg Neutrophils % Seg Neutrophils # Sodium Potassium Chloride Carbon Dioxide Anion Gap BUN Creatinine Estimated GFR BUN/Creatinine Ratio Glucose Calcium Total Bilirubin AST ALT Alkaline Phosphatase Total Protein Albumin Albumin/Globulin Ratio Amylase Lipase SARS-CoV-2 (PCR) Negative - Allied health notes Allied health notes reviewed: case management ([facility] will reach out to patient, dialysis social worker to follow up)
[2022-04-30] MEDS: D5NS W/KCL 20 MEQ 20 MEQ/1,000 ML BAG IV SCH ×2 (05:13→16:23)
[2022-04-30] MEDS ORDERED: METOCLOPRAMIDE 10 MG/2 ML INJ IV PRN (06:34)
--- NOTE | 2022-04-30 06:47 | Progress Note ---
Assessment and Plan IUP at 8.4wks with hyperemesis gravidarum, Hypokalemia 1. Appreciate [facility] 2. Will continue zofran ATC and place reglan and phenergan PRN 3. Daily wt 4. Advance to regular diet 5. Discharge home when zofran pump available 6. Repeat BMP today to evaluate hypokalemia, and pt has received all oral and IV replacement Subjective Date of service: 04/30/22 Principal diagnosis: Hyperemesis Gravidarum, hypokalemia Interval history: pt states she feels better and wants to eat food. Denies vomiting overnight and denies pelvic pain. Voiding without difficulty. Objective - Constitutional Vitals: Vital Signs - 12hr 04/29/22 04/29/22 04/29/22 20:00 20:01 22:00 Temperature 98.7 F Pulse Rate 98 H Respiratory 18 Rate Respiratory 18 Rate [Head] Blood Pressure 139/80 O2 Sat by Pulse 100 100 Oximetry 04/30/22 04/30/22 00:47 04:29 Temperature 98.9 F 98.8 F Pulse Rate 90 85 Respiratory 18 18 Rate Respiratory Rate [Head] Blood Pressure 136/93 121/74 O2 Sat by Pulse 96 100 Oximetry General appearance: Present: no acute distress - Neck Neck: normal ROM - Respiratory Respiratory effort: normal - Breasts Breasts: deferred - Cardiovascular Rhythm: regular Extremities: abnormal (PICC line to right upper extrem and same wnl) - Gastrointestinal General gastrointestinal: Present: soft, non-tender - Genitourinary Female genitourinary: deferred - Integumentary Integumentary: warm, dry - Neurologic Neurologic: moves all extremities - Psychiatric Psychiatric: cooperative - Labs CBC & Chem 7: 04/28/22 21:26 04/28/22 21:26 Medications & Allergies - Medications Allergies/Adverse Reactions: Allergies No Known Allergies Allergy (Verified 05/18/21 16:46) Home Medications: Home Medications Medication Instructions Recorded Confirmed Last Taken Type One Daily Tablet 1 tab PO DAILY 05/17/21 04/29/22 05/17/21 09:00 History Ferrous Sulfate [Feosol 325 MG tab] 325 mg PO BID #120 tablet 05/20/21 04/29/22 Unknown Rx Ibuprofen [Motrin 600 MG tab] 600 mg PO Q6H PRN #30 tablet 05/20/21 04/29/22 Unknown Rx Metoclopramide [Reglan] 10 mg PO TID PRN #30 tab 04/24/22 04/29/22 Unknown Rx diphenhydrAMINE [Benadryl CAP] 25 mg PO Q8HR PRN #30 capsule 04/24/22 04/29/22 Unknown Rx Active Medications: Generic Name Dose Route Start Last Admin Trade Name Freq PRN Reason Stop Dose Admin Potassium Chloride/Dextrose/Sod Cl 20 meq in 1,000 mls @ 150 mls/hr 04/29/22 08:00 04/30/22 05:13 D5w/Ns W/Kcl 20meq IV 150 mls/hr DIRECT RIVER Administration Chlorpromazine HCl 50 mg/ 52 mls @ 100 mls/hr 04/29/22 09:00 Sodium Chloride IV Q4H PRN Nausea And Vomiting Metoclopramide HCl 10 mg 04/30/22 06:34 Metoclopramide 10 Mg/2 Ml Inj IV 05/02/22 06:31 Q8H PRN Nausea And Vomiting Ondansetron HCl 8 mg 04/29/22 09:00 04/29/22 23:50 Ondansetron 4 Mg/2 Ml Inj IV 8 mg Q8H RIVER Administration
[2022-04-30 08:32] LABS: Blood Urea Nitrogen 4 mg/dL (7-17); Calcium 8.2 mg/dL (8.4-10.2); Hemolysis Index 3
[2022-04-30 08:41] LABS: BUN/Creatinine Ratio 10
[2022-04-30] MEDS: ONDANSETRON 4 MG/2 ML INJ IV SCH ×3 (09:06→17:01)
[2022-04-30] MEDS ORDERED: POTASSIUM CHLORIDE 10 MEQ 10 MEQ/100 ML BAG IV ONE (10:00)
[2022-04-30] MEDS: POTASSIUM CHLORIDE 10 MEQ 10 MEQ/100 ML BAG IV SCH ×3 (11:34→13:46)
[2022-04-30] MEDS: POTASSIUM CHLORIDE ER 20 MEQ TAB PO SCH ×2 (11:34→13:46)
--- NOTE | 2022-04-30 11:37 | Consultation ---
History of Present Illness - Reason for Consult Consult date: 04/30/22 Hyperemesis, severe hypokalemia/hypomagnesemia Requesting physician: FELICIA MOORE - History of Present Illness 26-year-old female patient 3 8 weeks gestation was admitted by CAPTAIN'S ASSISTANT with history of intractable nausea vomiting of 3 weeks duration unable to keep any food or water down.. Patient was noted to have severe hypokalemia twith potassium of 2.8 last night, patient received IV and oral potassium chloride and repeat potassium this morning was 2.6, and magnesium 1.5, continues to have nausea vomiting. Hospitalist service was consulted for the management of hypokalemia, hypomagnesium Valerie and nausea vomiting . Patient's nausea vomiting significantly improved, able to take small amounts of food vital signs stable with blood pressure of 111 / 64 pulse of 89/min. Patient has no other symptoms or complaints Past History Past Medical History: No medical history Past Surgical History: Other (Cholecystectomy) Social history: other (Marijuana use). denies: smoking, alcohol abuse Family history: no significant family history Medications and Allergies Allergies Allergy/AdvReac Type Severity Reaction Status Date / Time No Known Allergies Allergy Verified 05/18/21 16:46 Home Medications Medication Instructions Recorded Confirmed Last Taken Type One Daily Tablet 1 tab PO DAILY 05/17/21 04/29/22 05/17/21 09:00 History Ferrous Sulfate [Feosol 325 MG tab] 325 mg PO BID #120 tablet 05/20/21 04/29/22 Unknown Rx Ibuprofen [Motrin 600 MG tab] 600 mg PO Q6H PRN #30 tablet 05/20/21 04/29/22 Unknown Rx Metoclopramide [Reglan] 10 mg PO TID PRN #30 tab 04/24/22 04/29/22 Unknown Rx diphenhydrAMINE [Benadryl CAP] 25 mg PO Q8HR PRN #30 capsule 04/24/22 04/29/22 Unknown Rx Active Meds: Active Medications Potassium Chloride/Dextrose/Sod Cl (D5w/Ns W/Kcl 20meq) 20 meq in 1,000 mls @ 150 mls/hr IV DIRECT RIVER Last Admin: 04/30/22 05:13 Dose: 150 mls/hr Chlorpromazine HCl 50 mg/ (Sodium Chloride) 52 mls @ 100 mls/hr IV Q4H PRN PRN Reason: Nausea And Vomiting Potassium Chloride (Kcl 10meq/100ml) 10 meq in 100 mls @ 100 mls/hr IV Q1H [facility] Stop: 04/30/22 13:59 Last Admin: 04/30/22 11:34 Dose: 100 mls/hr Magnesium Sulfate (Magnesium Sulfate 2gm/50ml) 2 gm in 50 mls @ 25 mls/hr IV ONCE ONE Stop: 04/30/22 13:31 Metoclopramide HCl (Metoclopramide 10 Mg/2 Ml Inj) 10 mg IV Q8H PRN PRN Reason: Nausea And Vomiting Stop: 05/02/22 06:31 Ondansetron HCl (Ondansetron 4 Mg/2 Ml Inj) 8 mg IV Q8H [facility] Last Admin: 04/30/22 09:09 Dose: Not Given Potassium Chloride (Potassium Chloride Er 20 Meq Tab) 40 meq PO Q4HR [facility] Stop: 04/30/22 14:01 Last Admin: 04/30/22 11:34 Dose: 40 meq Review of Systems Constitutional: weakness, other (Nausea vomiting), no weight loss, no weight gain Ears, nose, mouth and throat: no nasal congestion, no nasal discharge Cardiovascular: no chest pain, no orthopnea, no palpitations Respiratory: no cough, no shortness of breath Gastrointestinal: nausea, vomiting, no abdominal pain, no diarrhea Genitourinary Female: no flank pain, no dysuria Musculoskeletal: no myalgias, no arthritis Integumentary: no rash, no lesions Neurological: weakness, no numbness, no seizures, no syncope Psychiatric: no anxiety Endocrine: no cold intolerance, no heat intolerance Hematologic/Lymphatic: no easy bruising, no easy bleeding Allergic/Immunologic: no urticaria, no allergic rhinitis Exam - Constitutional Vitals: Temp Pulse Resp BP Pulse Ox 98.0 F 89 18 111/64 100 04/30/22 07:56 04/30/22 07:56 04/30/22 07:56 04/30/22 07:56 04/30/22 10:00 General appearance: Present: no acute distress, well-nourished - EENT Eyes: Present: PERRL, EOM intact - Neck Neck: Present: supple, normal ROM - Respiratory Respiratory effort: normal Respiratory: bilateral: diminished, negative: rales, rhonchi, wheezing - Cardiovascular Rhythm: regular Heart Sounds: Present: S1 & S2 - Extremities Extremities: no ischemia, No edema - Abdominal General gastrointestinal: Present: soft, non-tender, non-distended, normal bowel sounds - Integumentary Integumentary: Present: clear, warm - Musculoskeletal Musculoskeletal: strength equal bilaterally - Psychiatric Psychiatric: appropriate mood/affect - Neurologic Neurologic: moves all extremities Results - Labs CBC & Chem 7: 04/28/22 21:26 04/30/22 07:49 Labs: Abnormal lab results 04/30/22 04/30/22 Range/Units 07:49 07:49 Sodium 135 L (137-145) mmol/L Potassium 2.6 L* (3.6-5.0) mmol/L BUN 4 L (7-17) mg/dL Creatinine 0.4 L (0.6-1.2) mg/dL Calcium 8.2 L D (8.4-10.2) mg/dL Magnesium 1.50 L (1.7-2.3) mg/dL Assessment and Plan -- Severe hypokalemia; potassium 2.6 Replenished with IV and oral KCl Check magnesium levels Closely monitor electrolytes Repeat potassium and magnesium after 6 to 8 hours -- Hypomagnesemia; magnesium 1.5 Replenished with mag sulfate 2 g IV x1 dose Monitor electrolytes -- Hyperemesis; Antiemetics , Reglan, IV fluids and supportive care Management per CAPTAIN'S ASSISTANT -- Hyponatremia; present on admission Mild improvement closely monitor Rest of the management per SWEATBAND SHAPER Advance the diet as tolerated If patient's symptoms do not improve Patient may need GI evaluation We will closely monitor the patient and adjust management as needed Plan of care reviewed with the patient and her nurse. Thank you for this consultation We will follow the patient along with you Call us with questions Evening tests potassium and magnesium pending Follow the reports and correct electrolytes as needed
[2022-04-30] MEDS ORDERED: MAGNESIUM SULFATE 2 GM/50 ML BAG IV ONE (12:00)
[2022-04-30 12:03] LABS: Bacteria,Urine 1+ /HPF (Negative); Mucus,Urine FEW /HPF; White Blood Cell Casts,Urine 1 /LPF
[2022-04-30 12:09] LABS: Color,Urine Straw (Yellow)
[2022-04-30 12:10] LABS: Bilirubin,Urine Negative (Negative); Blood,Urine Trace (Negative); Urobilinogen,Urine < 2.0 mg/dL (<2.0)
[2022-04-30] MEDS: METOCLOPRAMIDE 10 MG/2 ML INJ IV SCH (13:08)
[2022-04-30] MEDS ORDERED: POTASSIUM CHLORIDE ER 20 MEQ TAB PO ONE (22:04)
[2022-05-01] MEDS: ONDANSETRON 4 MG/2 ML INJ IV SCH ×3 (00:37→16:12)
[2022-05-01] MEDS: D5NS W/KCL 20 MEQ 20 MEQ/1,000 ML BAG IV SCH ×3 (03:54→22:56)
--- NOTE | 2022-05-01 07:03 | Progress Note ---
Assessment and Plan IUP at 8.5wks with hyperemesis gravidarum, improved hypokalemia 1. Appreciate Med hospitalist with treatment of hypokalemia, same improved to level 3.3 2. Appreciate [facility] for high risk mgt 3. Pt to continue zofran IV and await zofran pump and then discharge home All questions encouraged and answered Subjective Date of service: 05/01/22 Principal diagnosis: Hyperemesis Gravidarum, hypokalemia Interval history: pt states she feels better today than yesterday. Pt got both IV and oral meds for hypokalemia treatmet. Objective - Constitutional Vitals: Vital Signs - 12hr 04/30/22 04/30/22 05/01/22 19:50 20:44 01:40 Temperature 98.4 F 98.1 F Pulse Rate 99 H 98 H Respiratory 18 16 Rate Blood Pressure 121/71 126/67 O2 Sat by Pulse 99 100 100 Oximetry 05/01/22 06:05 Temperature 98.6 F Pulse Rate 86 Respiratory 18 Rate Blood Pressure 123/78 O2 Sat by Pulse 100 Oximetry General appearance: Present: no acute distress - Neck Neck: normal ROM - Respiratory Respiratory effort: normal - Breasts Breasts: deferred - Cardiovascular Rhythm: regular Extremities: No edema - Gastrointestinal General gastrointestinal: Present: soft, non-tender - Genitourinary Female genitourinary: deferred - Integumentary Integumentary: warm, dry - Labs CBC & Chem 7: 04/28/22 21:26 05/01/22 04:48 Labs: Abnormal lab results 04/30/22 04/30/22 04/30/22 Range/Units 07:49 07:49 20:57 Sodium 135 L (137-145) mmol/L Potassium 2.6 L* 2.8 L* (3.6-5.0) mmol/L BUN 4 L (7-17) mg/dL Creatinine 0.4 L (0.6-1.2) mg/dL Calcium 8.2 L D (8.4-10.2) mg/dL Magnesium 1.50 L (1.7-2.3) mg/dL Urine WBC (Auto) (0.0-6.0) /HPF 04/30/22 05/01/22 Range/Units Unknown 04:48 Sodium (137-145) mmol/L Potassium 3.3 L (3.6-5.0) mmol/L BUN (7-17) mg/dL Creatinine (0.6-1.2) mg/dL Calcium (8.4-10.2) mg/dL Magnesium 1.60 L (1.7-2.3) mg/dL Urine WBC (Auto) 65.0 H (0.0-6.0) /HPF Medications & Allergies - Medications Allergies/Adverse Reactions: Allergies No Known Allergies Allergy (Verified 05/18/21 16:46) Home Medications: Home Medications Medication Instructions Recorded Confirmed Last Taken Type One Daily Tablet 1 tab PO DAILY 05/17/21 04/29/22 05/17/21 09:00 History Ferrous Sulfate [Feosol 325 MG tab] 325 mg PO BID #120 tablet 05/20/21 04/29/22 Unknown Rx Ibuprofen [Motrin 600 MG tab] 600 mg PO Q6H PRN #30 tablet 05/20/21 04/29/22 Unk nown Rx Metoclopramide [Reglan] 10 mg PO TID PRN #30 tab 04/24/22 04/29/22 Unknown Rx diphenhydrAMINE [Benadryl CAP] 25 mg PO Q8HR PRN #30 capsule 04/24/22 04/29/22 Unknown Rx Active Medications: Generic Name Dose Route Start Last Admin Trade Name Freq PRN Reason Stop Dose Admin Potassium Chloride/Dextrose/Sod Cl 20 meq in 1,000 mls @ 150 mls/hr 04/29/22 08:00 05/01/22 03:54 D5w/Ns W/Kcl 20meq IV 150 mls/hr [facility] Administration Chlorpromazine HCl 50 mg/ 52 mls @ 100 mls/hr 04/29/22 09:00 Sodium Chloride IV Q4H PRN Nausea And Vomiting Magnesium Sulfate 2 gm in 50 mls @ 25 mls/hr 05/01/22 06:37 Magnesium Sulfate 2gm/50ml IV 05/01/22 08:36 ONCE ONE Metoclopramide HCl 10 mg 04/30/22 06:34 Metoclopramide 10 Mg/2 Ml Inj IV 05/02/22 06:31 Q8H PRN Nausea And Vomiting Ondansetron HCl 8 mg 04/29/22 09:00 05/01/22 00:37 Ondansetron 4 Mg/2 Ml Inj IV 8 mg Q8H [facility] Administration Potassium Chloride 40 meq 05/01/22 06:32 Potassium Chloride Er 20 Meq Tab PO 05/01/22 06:33 ONCE ONE
[2022-05-01] MEDS ORDERED: MAGNESIUM SULFATE 2 GM/50 ML BAG IV ONE (08:00)
[2022-05-01] MEDS ORDERED: POTASSIUM CHLORIDE ER 20 MEQ TAB PO ONE (08:00)
--- NOTE | 2022-05-01 17:48 | Progress Note ---
Assessment and Plan Assessment and plan: --Severe hypokalemia; potassium 2.6 [04/30/22] Received multiple doses of IV and oral KCl This morning patient's potassium is 3.3 Replenished with 40 mEq of oral KCl --Hypomagnesemia; magnesium 1.6 Received 2 g of mag sulfate IV Closely monitor electrolytes If patient continues to have hypokalemia and hypomagnesemia, In addition to replenishing the deficit, we can also add scheduled low-dose 20 mEq of KCl daily and 400 mg of Mag-Ox oral daily in house As well as at discharge as needed, and frequent measurement of electrolytes As long as the patient has hyperemesis. -- Hyperemesis; Antiemetics , Reglan, IV fluids and supportive care Management per AUDIO PRODUCTION MANAGER -- Hyponatremia; present on admission Mild improvement closely monitor Rest of the management per ELEMENTARY SCHOOL MUSIC TEACHER Advance the diet as tolerated If patient's symptoms do not improve Patient may need GI evaluation We will closely monitor the patient and adjust management as needed Plan of care reviewed with the patient and her nurse. Thank you for this consultation We will follow the patient along with you Call us with questions History Interval history: Seen and examined the patient at the bedside this afternoon Patient's chart and medications reviewed Patient's potassium this morning was 3.3, magnesium 1.6 Patient's nausea vomiting slightly improved No new complaints patient patient is tolerating some food And plenty of oral fluids Vital signs noted Hospitalist Physical - Constitutional Vitals: Temp Pulse Resp BP Pulse Ox 98.2 F 92 H 18 121/61 100 05/01/22 16:00 05/01/22 16:00 05/01/22 16:00 05/01/22 16:00 05/01/22 16:00 General appearance: Present: no acute distress, well-nourished, obese - EENT Eyes: Present: PERRL, EOM intact ENT: hearing intact, clear oral mucosa - Neck Neck: Present: supple, normal ROM - Respiratory Respiratory effort: normal Respiratory: bilateral: diminished, negative: rales, rhonchi, wheezing - Cardiovascular Rhythm: regular Heart Sounds: Present: S1 & S2 - Extremities Extremities: no ischemia, No edema Results - Labs CBC & Chem 7: 04/28/22 21:26 05/01/22 04:48 Labs: Laboratory Last Values WBC 7.4 K/mm3 (4.5-11.0) 04/28/22 21: RBC 5.21 M/mm3 (3.65-5.03) H 04/28/22 21: Hgb 15.1 gm/dl (10.1-14.3) H 04/28/22 21: Hct 44.7 % (30.3-42.9) H 04/28/22 21: MCV 86 fl (79-97) 04/28/22 21: MCH 29 pg (28-32) 04/28/22 21: MCHC 34 % (30-34) 04/28/22 21: RDW 14.7 % (13.2-15.2) 04/28/22: Plt Count 445 K/mm3 (140-440) H 04/28/22 21: Lymph % (Auto) 19.0 % (13.4-35.0) 04/28/22 21: [place] % (Auto) 10.7 % (0.0-7.3) H 04/28/22 21: Eos % (Auto) 0.3 % (0.0-4.3) 04/28/22 21: Baso % (Auto) 0.4 % (0.0-1.8) 04/28/22 21: Lymph # (Auto) 1.4 K/mm3 (1.2-5.4) 04/28/22 21: [place] # (Auto) 0.8 K/mm3 (0.0-0.8) 04/28/22: Eos # (Auto) 0.0 K/mm3 (0.0-0.4) 04/28/22 21: Baso # (Auto) 0.0 K/mm3 (0.0-0.1) 04/28/22 21: Seg Neutrophils % 69.6 % (40.0-70.0) 04/28/22: Seg Neutrophils # 5.2 K/mm3 (1.8-7.7) 04/28/22 21: Sodium 135 mmol/L (137-145) L 04/30/22 07:49 Potassium 3.3 mmol/L (3.6-5.0) L 05/01/22 04:48 Chloride 102.8 mmol/L (98-107) 04/30/22 07:49 Carbon Dioxide 23 mmol/L (22-30) 04/30/22 07:49 Anion Gap 12 mmol/L 04/30/22 07:49 BUN 4 mg/dL (7-17) L 04/30/22 07:49 Creatinine 0.4 mg/dL (0.6-1.2) L 04/30/22 07:49 Estimated GFR > 60 ml/min 04/30/22 07:49 BUN/Creatinine Ratio 10 % 04/30/22 07:49 Glucose 99 mg/dL (65-100) 04/30/22 07:49 Calcium 8.2 mg/dL (8.4-10.2) L D 04/30/22 07:49 Magnesium 1.60 mg/dL (1.7-2.3) L 05/01/22 04:48 Total Bilirubin 2.10 mg/dL (0.1-1.2) H 04/28/22 21:26 AST 20 units/L (5-40) 04/28/22 21:26 ALT 27 units/L (7-56) 04/28/22 21:26 Alkaline Phosphatase 75 units/L (35-129) 04/28/22 21:26 Total Protein 8.4 g/dL (6.3-8.2) H 04/28/22 21:26 Albumin 4.7 g/dL (3.9-5) 04/28/22 21:26 Albumin/Globulin Ratio 1.3 % 04/28/22 21:26 Amylase 115 units/L (27-131) 04/28/22 21:26 Lipase 14 units/L (13-60) 04/28/22 21:26 Urine Color Straw (Yellow) 04/30/22 Unknown Urine Turbidity Hazy (Clear) 04/30/22 Unknown Urine pH 5.0 (5.0-7.0) 04/30/22 Unknown Ur Specific [place] 1.010 (1.003-1.030) 04/30/22 Unknown Urine Protein 30 mg/dl mg/dL (Negative) 04/30/22 Unknown Urine Glucose (UA) Negative mg/dL (Negative) 04/30/22 Unknown Urine Ketones 80 mg/dL (Negative) 04/30/22 Unknown Urine Blood Trace (Negative) 04/30/22 Unknown Urine Nitrite Negative (Negative) 04/30/22 Unknown Ur Reducing Substances Not Reportable 04/30/22 Unknown Urine Bilirubin Negative (Negative) 04/30/22 Unknown Urine Ictotest Not Reportable 04/30/22 Unknown Urine Urobilinogen < 2.0 mg/dL (<2.0) 04/30/22 Unknown Ur Leukocyte Esterase Moderate (Negative) 04/30/22 Unknown Urine WBC (Auto) 65.0 /HPF (0.0-6.0) H 04/30/22 Unknown Urine RBC (Auto) 7.0 /HPF (0.0-6.0) 04/30/22 Unknown U Epithel Cells (Auto) 10.0 /HPF (0-13.0) 04/30/22 Unknown Urine Bacteria (Auto) 1+ /HPF (Negative) 04/30/22 Unknown WBC Casts 1 /LPF 04/30/22 Unknown Urine Mucus Few /HPF 04/30/22 Unknown SARS-CoV-2 (PCR) Negative (Negative) 04/29/22 09:30 Microbiology: Microbiology 04/30/22 Unknown Urine,Clean Catch Urine Culture - Preliminary Active Medications - Current Medications Current Medications: Generic Name Dose Route Start Last Admin Trade Name Freq PRN Reason Stop Dose Admin Potassium Chloride/Dextrose/Sod Cl 20 meq in 1,000 mls @ 150 mls/hr 04/29/22 08:00 05/01/22 14:12 D5w/Ns W/Kcl 20meq IV 150 mls/hr [facility] Administration Chlorpromazine HCl 50 mg/ 52 mls @ 100 mls/hr 04/29/22 09:00 Sodium Chloride IV Q4H PRN Nausea And Vomiting Metoclopramide HCl 10 mg 04/30/22 06:34 Metoclopramide 10 Mg/2 Ml Inj IV 05/02/22 06:31 Q8H PRN Nausea And Vomiting Ondansetron HCl 8 mg 04/29/22 09:00 05/01/22 16:12 Ondansetron 4 Mg/2 Ml Inj IV 8 mg Q8H [facility] Administration Nutrition/Malnutrition Assess - Dietary Evaluation Nutrition/Malnutrition Findings: Nutrition Notes Start: 04/29/22 15:01 Freq: Status: Active Protocol: Document 04/29/22 15:01 DIMPLE (Rec: 04/29/22 15:27 DIMPLE [id number]) Nutrition Notes Initial or Follow up Assessment Other Pertinent Diagnosis Hyperemesis Gravidarum, Hypokalemia. Current Diet NPO (since admision). Labs/Tests 04/29: Na 133, K 2.8, Cl 92.0, CO2 17, Glu 117. Pertinent Medications 04/29: D5w/0.45ns/Kcl 20mEq @ 150ml/hr, others nutritionally unremarkable. Height 5 ft Weight 77.111 kg [place] Body Weight (kg) 45.45 BMI 33.2 Intake Prior to Admission Poor Weight change and time frame Pt states having loss about 12 lb, unintentionally, within the last 6 weeks. Weight Status Obese Subjective/Other Information RD consult for hyperemesis gravidarum assessment. Pt is currently on NPO, with Banana Bag, according to RN. Pt is G3, P2 002, [place] IUP @ 8w 3d, according to Progress notes. Pt has experienced Hyperemesis Gravidarum with her previous pregnancies, according to Progress notes. Percent of energy/protein needs met: Pt is currently on NPO. When pertinent, advance to prescribed Clear Liquids Diet provides for energy/protein needs (590 Kcal/16 g) during LOS; additionally, Dietary Supplements will compensate for possible poor or insufficient PO intake of meals with 720 Kcal and 24 g of protein. Burn Absent Trauma Absent GI Symptoms Nausea,Vomiting Food Allergy No Skin Integrity/Comment Assessment WNL. Current % PO Negligible Minimum of two criteria No Energy Intake (severe) < or equal to 50% Estimated Energy Requirement > or equal to 5 days Interpretation of Weight Loss (non- 5% in 1 month severe) Protein-Calorie Malnutrition N\A #1 Nutrition Diagnosis Altered GI function Etiology . As Evidenced by Signs and Symptoms Hyperemesis Gravidarum. Is patient on ventilator? No Is Patient Ambulatory and/or Out of Bed Yes REE-([place]-St. Jeor-ambulatory/OOB) [ 1849.393 [id number]] Kcal/Kg value to use for calculation 17 Approximate Energy Requirements Using 1311 kcal/Kg Calculation Used for Recommendations Kcal/kg Additional Notes Protein: 1.1 g/Kg AdjBW; 62 g/ day. Fluids: 1 ml/Kcal, or as per MD. Nutrition Intervention Change Diet Order: When pertinent, advance to Clear Liquids Diet as tolerated. Add Supplement/Snack (indicate name/kcal When pertinent, Start 8 fl oz /protein ) Ensure Clear; TID. Provides kCal: 720 Provides Protein (gm) 28 Goal #1 Compensate, through dietary supplementation, for possible poor or insufficient PO intake of meals during LOS. Goal #2 Facilitate PO intake of meals with elemental, textural, or mechanical modification during LOS. Follow-Up By: 05/02/22 Additional Comments When pertinent, start monitoring food tolerance, %PO intake of meals, dietary supplemenmts, and BM.
[2022-05-02] MEDS: ONDANSETRON 4 MG/2 ML INJ IV SCH ×3 (00:16→17:07)
[2022-05-02] MEDS: ACETAMINOPHEN 325 MG TAB PO PRN ×3 (07:02→20:26)
[2022-05-02] MEDS ORDERED: POTASSIUM CHLORIDE ER 20 MEQ TAB PO NR (08:31)
[2022-05-02] MEDS ORDERED: MAGNESIUM SULFATE 3 GM in SODIUM CHLORIDE 0.9% 100 ML IV ONE (10:00)
[2022-05-02] MEDS: MAGNESIUM OXIDE 400 MG TAB PO SCH (10:56)
[2022-05-02] MEDS ORDERED: SODIUM CHLORIDE 0.9% 1000 ML 1,000 ML IV SCH (11:05)
[2022-05-02] MEDS ORDERED: SODIUM CHLORIDE 0.9% 1000 ML 1,000 ML ONE (11:05)
--- NOTE | 2022-05-02 11:52 | Progress Note ---
Assessment and Plan - Patient Problems (1) Hyperemesis arising during Onset Date: 04/21/14 Current Visit: Yes Status: Chronic Plan to address problem: Stable and awaiting infusion pump for outpatient use. SONYA thurman called into [facility] voicemail at [phone]. Subjective - Subjective Date of service: 05/02/22 Principal diagnosis: Hyperemesis Gravidarum, hypokalemia Interval history: 8+6wks , Hyperemesis gr. Doing well and tolerating feeds. No n/v today. Patient reports: new complaints, other ("I only vomitted once today" "I feel tired and hungry") Objective - Vital Signs Vital Signs: Vital Signs - 12hr 05/02/22 05/02/22 04:22 07:02 Temperature 99.0 F Pulse Rate 102 H Respiratory 20 16 Rate Blood Pressure 101/60 O2 Sat by Pulse 98 Oximetry - Exam Lungs: Normal air movement Abdomen: Present: normal appearance, soft Extremities: normal Deep Tendon Reflex Grade: Normal +2 - Labs Labs: Abnormal Labs 04/28/22 04/28/22 04/30/22 21:26 21:26 07:49 RBC 5.21 H Hgb 15.1 H Hct 44.7 H Plt Count 445 H [place] % (Auto) 10.7 H Sodium 133 L 135 L Potassium 2.8 L* 2.6 L* Chloride 92.0 L Carbon Dioxide 17 L BUN 4 L Creatinine 0.4 L Glucose 117 H Calcium 8.2 L D Magnesium Total Bilirubin 2.10 H Total Protein 8.4 H Urine WBC (Auto) 04/30/22 04/30/22 04/30/22 07:49 20:57 Unknown RBC Hgb Hct Plt Count [place] % (Auto) Sodium Potassium 2.8 L* Chloride Carbon Dioxide BUN Creatinine Glucose Calcium Magnesium 1.50 L Total Bilirubin Total Protein Urine WBC (Auto) 65.0 H 05/01/22 05/02/22 04:48 04:37 RBC Hgb Hct Plt Count [place] % (Auto) Sodium Potassium 3.3 L 3.5 L Chloride Carbon Dioxide BUN Creatinine Glucose Calcium Magnesium 1.60 L 1.50 L Total Bilirubin Total Protein Urine WBC (Auto) Laboratory Results - last 24 hr 05/02/22 04:37 Potassium 3.5 L Magnesium 1.50 L
[2022-05-03] MEDS: ONDANSETRON 4 MG/2 ML INJ IV SCH ×3 (00:25→17:36)
[2022-05-03] MEDS: ACETAMINOPHEN 325 MG TAB PO PRN ×2 (05:12→14:40)
--- NOTE | 2022-05-03 09:27 | Progress Note ---
Assessment and Plan IUP at 9.0wks with hyperemesis gravidarum controlled with IV zofran, hypokalemia resolved 1. Continue zofran and discharge home when pump available 2. Routine care. Subjective Date of service: 05/03/22 Principal diagnosis: Hyperemesis Gravidarum, hypokalemia resolved; IUP at 9.0wks Interval history: pt denies vomiting last night and states she feels better and tolerating regular diet. Still waiting on the zofran pump for which pt continues to get IV zofran now. Voiding without difficulty. Objective - Constitutional Vitals: Vital Signs - 12hr 05/03/22 05/03/22 05/03/22 00:38 04:33 05:12 Temperature 98.3 F 98.0 F Pulse Rate 84 87 Respiratory 18 18 18 Rate Blood Pressure 128/75 119/80 O2 Sat by Pulse 100 100 Oximetry 05/03/22 05/03/22 08:15 08:33 Temperature 98.6 F Pulse Rate 83 Respiratory 20 Rate Blood Pressure 127/88 O2 Sat by Pulse 100 100 Oximetry General appearance: Present: no acute distress - Neck Neck: normal ROM - Respiratory Respiratory effort: normal - Breasts Breasts: deferred - Cardiovascular Rhythm: regular Extremities: No edema - Gastrointestinal General gastrointestinal: Present: soft, non-tender - Genitourinary Female genitourinary: deferred - Neurologic Neurologic: moves all extremities - Psychiatric Psychiatric: cooperative - Labs CBC & Chem 7: 04/28/22 21:26 05/02/22 04:37 Medications & Allergies - Medications Allergies/Adverse Reactions: Allergies No Known Allergies Allergy (Verified 05/18/21 16:46) Home Medications: Home Medications Medication Instructions Recorded Confirmed Last Taken Type One Daily Tablet 1 tab PO DAILY 05/17/21 04/29/22 05/17/21 09:00 History Ferrous Sulfate [Feosol 325 MG tab] 325 mg PO BID #120 tablet 05/20/21 04/29/22 Unknown Rx Ibuprofen [Motrin 600 MG tab] 600 mg PO Q6H PRN #30 tablet 05/20/21 04/29/22 Un known Rx Metoclopramide [Reglan] 10 mg PO TID PRN #30 tab 04/24/22 04/29/22 Unknown Rx diphenhydrAMINE [Benadryl CAP] 25 mg PO Q8HR PRN #30 capsule 04/24/22 04/29/22 Unknown Rx Active Medications: Generic Name Dose Route Start Last Admin Trade Name Yany PRN Reason Stop Dose Admin Acetaminophen 650 mg 05/02/22 07:30 05/03/22 05:12 Acetaminophen 325 Mg Tab PO 650 mg Q4H PRN Administration Pain, Mild (1-3) Potassium Chloride/Dextrose/Sod Cl 20 meq in 1,000 mls @ 150 mls/hr 04/29/22 08:00 05/01/22 22:56 D5w/Ns W/Kcl 20meq IV 150 mls/hr [facility] Administration Chlorpromazine HCl 50 mg/ 52 mls @ 100 mls/hr 04/29/22 09:00 Sodium Chloride IV Q4H PRN Nausea And Vomiting Magnesium Oxide 400 mg 05/02/22 10:00 05/02/22 10:56 Magnesium Oxide 400 Mg Tab PO 400 mg QDAY [facility] Administration Ondansetron HCl 8 mg 04/29/22 09:00 05/03/22 00:25 Ondansetron 4 Mg/2 Ml Inj IV 8 mg Q8H [facility] Administration
[2022-05-03] MEDS: MAGNESIUM OXIDE 400 MG TAB PO SCH (11:23)
--- NOTE | 2022-05-03 11:57 | Discharge Summary ---
Providers - Providers Date of Admission: 04/29/22 06:59 Date of discharge: 05/03/22 Attending physician: FELICIA MOORE 04/29/22 Consult to Case Management [CONS] Routine Services Needed at Discharge: Home Health Services Notified:: computer input Phone number called:: [phone] Was contact made?: Yes If yes, spoke with:: mike Time called:: 10:27 Comment:: case mgt. said f/u will be done Additional Physician Instructions: Please help setup [facility] for Zofran pump and IV fluids. 04/29/22 06:59 Consult to Dietitian/Nutrition [CONS] Routine Physician Instructions: Reason For Exam: Hyperemesis gravidarum Reason for Consult: Poor oral intake 04/29/22 09:06 Consult to Physician [CONS] Stat Comment: Consulting Provider: [facility] Physician Instructions: Reason For Exam: hyperemesis grav at 8wks 04/30/22 09:05 Consult to Physician [CONS] Stat Comment: Consulting Provider: CLAUDIA MARLEY Physician Instructions: Reason For Exam: hypokalemia, hyperemesis, no nausea now; IUP 8.4wk Primary care physician: IMTIAZ YEH Hospitalization Reason for admission: IUP - (hyperemesis gravidarum) Hospital course: IUP at 8.3wks admitted with hyperemesis gravidarum, given IV antiemetics with zofran having the best effect and pt given zofran pump and discharged today when the pump was available by homehealth. Pt also was treated by med hospitalist with potassium 2.8 on admission and magnesium level deficit corrected to the point that potassium level was normal at 3.5. pt to follow up med service as an outpatient. Plan of care discussed with patient. All questions encouraged and answered Condition at discharge: Good Disposition: 01 HOME / SELF CARE / HOMELESS - Discharge Diagnoses (1) Hyperemesis arising during Status: Chronic (2) Hypokalemia Status: Acute Plan - Provider Discharge Summary Additional instructions: [] Smoking cessation referral if applicable(refer to patient education folder for contact #) [] Refer to [facility] Booklet Call your doctor immediately for: * Fever > 100.5 * Heavy vaginal bleeding ( >1 pad per hour) * Severe persistent headache * Shortness of breath * Reddened, hot, painful area to leg or breast * Drainage or odor from incision. * Keep incision clean and dry at all times and follow doctor's instructions regarding bathing/showering - Follow up plan Follow up: IMTIAZ YEH MD [Primary Care Provider] - 3-5 Days FELICIA MOORE MD [Staff Physician] - 7 Days
[2022-05-03] MEDS ORDERED: MAGNESIUM SULFATE 3 GM in SODIUM CHLORIDE 0.9% 100 ML IV NR (12:00)
--- NOTE | 2022-05-03 13:08 | Progress Note ---
Assessment and Plan --Severe hypokalemia; potassium 2.6 [04/30/22] Received multiple doses of IV and oral KCl This morning patient's potassium is 3.3 Replenished with 40 mEq of oral KCl --Hypomagnesemia; magnesium 1.6 Received 2 g of mag sulfate IV Closely monitor electrolytes If patient continues to have hypokalemia and hypomagnesemia, In addition to replenishing the deficit, we can also add scheduled low-dose 20 mEq of KCl daily and 400 mg of Mag-Ox oral daily in house As well as at discharge as needed, and frequent measurement of electrolytes As long as the patient has hyperemesis. -- Hyperemesis; Antiemetics , Reglan, IV fluids and supportive care Management per INSERT MOLDING OPERATOR -- Hyponatremia; present on admission Mild improvement closely monitor Rest of the management per BLOCK SPLITTER OPERATOR Advance the diet as tolerated, plan for DC today Thank you for this consultation We will follow the patient along with you Call us with questions Subjective Date of service: 05/03/22 Principal diagnosis: Hyperemesis Gravidarum, hypokalemia resolved; IUP at 9.0wks Objective - Constitutional Vitals: Vital Signs - 12hr 05/03/22 05/03/22 05/03/22 04:33 05:12 08:15 Temperature 98.0 F Pulse Rate 87 Respiratory 18 18 Rate Blood Pressure 119/80 O2 Sat by Pulse 100 100 Oximetry 05/03/22 05/03/22 08:33 12:16 Temperature 98.6 F 98.3 F Pulse Rate 83 73 Respiratory 20 20 Rate Blood Pressure 127/88 116/81 O2 Sat by Pulse 100 97 Oximetry - Labs CBC & Chem 7: 04/28/22 21:26 05/02/22 04:37
[2022-05-03 16:15] VITALS: BP 106/68
== END 2022-05-03 18:15 | disposition home or self-care (01) | DRG 781 ==
LOC: ED 19:17 → 3A 04-29 06:59 → OB 04-29 08:19
PROVIDERS: ADMIT Obstetrics & Gynecology; ATTEND Obstetrics & Gynecology
DX: O21.1 Hyperemesis gravidarum with metabolic disturbance (principal); Z3A.08 8 weeks gestation of pregnancy; Z20.822 Contact with and (suspected) exposure to COVID-19
CPT/HCPCS: 36415; 76801; 80048; 80053; 81001; 82150; 83690; 83735; 84132; 85025; 87086; 93005; G0378; J3480; J3490; J2405; J2765; J3411; J3475; J7030; U0003